=== PATIENT | male | born 1940 | race Caucasian/White ===

== ENCOUNTER 2017-08-30 06:26 | Inpatient (IN) | payer OTHER, MEDICARE ==
[2017-08-30] VITALS (9 sets, daily range): BP systolic 139–184; BP diastolic 63–84; PULSE 76–103; RESP 7–22; TEMP 97.3–98.2; O2SAT 90–98
[~2017-08-30] VITALS: Ht 177.8 cm; Wt 79.3 kg
[2017-08-30] MEDS ORDERED: AMLO10TA2 PO (06:43)
[2017-08-30 06:58] LABS: AUTOMATED NEUTROPHIL # 5.8 TH/MM3 (1.8-7.7); BASOPHIL % 0.5 % (0.0-2.0); EOSINOPHIL # 0.1 TH/MM3 (0-0.4); EOSINOPHIL % 1.1 % (0.0-4.0); HEMATOCRIT 39.6 % (39.0-51.0); HEMOGLOBIN 13.3 GM/DL (13.0-17.0); LYMPH % 12.7 % (9.0-44.0); LYMPHOCYTE # 0.9 TH/MM3 (1.0-4.8); MEAN CELL VOLUME 85.1 FL (80.0-100.0); MEAN CORPUSCULAR HEMOGLOBIN 28.6 PG (27.0-34.0); MEAN CORPUSCULAR HGB CONC 33.5 % (32.0-36.0); MEAN PLATELET VOLUME 8.3 FL (7.0-11.0); MONO % 7.4 % (0.0-8.0); MONOCYTE # 0.6 TH/MM3 (0-0.9); NEUT % 78.3 % (16.0-70.0); PLATELET COUNT 219 TH/MM3 (150-450); RED BLOOD COUNT 4.65 MIL/MM3 (4.50-5.90); RED CELL DISTRIBUTION WIDTH 13.6 % (11.6-17.2); WHITE BLOOD COUNT 7.5 TH/MM3 (4.0-11.0)
--- NOTE | 2017-08-30 07:09 | PD ---
HPI Chief Complaint: Respiratory Symptoms Time Seen by Provider: 06:54 Travel History International Travel<30 days: No Contact w/Intl Traveler<30days: No Traveled to known affect area: No History of Present Illness HPI The patient is a 77-year-old male who presents to the emergency department for shortness of breath. The patient notes cough and cold symptoms of one week's duration with congestion, chest congestion, productive cough producing white sputum. The patient has a remote history of tobacco use, quit smoking 20 years ago, denies any known history congestive heart failure, COPD, asthma, pulmonary embolism. Symptoms are moderate. He denies any chest pain, nausea, vomiting, diarrhea, or abdominal pain. He denies any recent hospitalizations, surgeries, or travel. The patient does have a history of hypertension for which he takes amlodipine. He denies any fever, chills, or sweats. The patient received Solu-Medrol 125 mg intravenously and nebulizers by EMS prior to arrival with significant improvement of his symptoms. The patient's primary physician is Dr. Michel. [facility] Past Medical History Narrative Medical Hypertension Hypertension: Yes Past Surgical History Narrative Surgical Right ear surgery Social History Alcohol Use: No Tobacco Use: No (quit 20 years ago) Substance Use: No Allergies-Medications (Allergen,Severity, Reaction): Coded Allergies: No Known Allergies (Unverified , 08/30/17) Reported Meds & Prescriptions Reported Meds & Active Scripts Active Reported Amlodipine (Amlodipine Besylate) 10 Mg Tab 10 Mg PO DAILY Review of Systems Except as stated in HPI: all other systems reviewed are Neg General / Constitutional: No: Fever HENT: Positive: Congestion Cardiovascular: No: Chest Pain or Discomfort Respiratory: Positive: Cough, Shortness of Breath, Wheezing Gastrointestinal: No: Nausea, Vomiting, Abdominal Pain Musculoskeletal: No: Edema Physical Exam Narrative GENERAL: Awake, alert, 77-year-old male who appears his stated age and is in mild respiratory distress. SKIN: Focused skin assessment warm/dry. HEAD: Atraumatic. Normocephalic. EYES: No injection or drainage. ENT: No nasal bleeding or discharge. Mucous membranes pink and moist. NECK: Trachea midline. No JVD. CARDIOVASCULAR: Regular rate and rhythm. No murmur appreciated. Heart rate in the 90s. RESPIRATORY: No accessory muscle use. Some scattered wheezes. GASTROINTESTINAL: Abdomen soft, non-tender, nondistended. No rebound tenderness. MUSCULOSKELETAL: No obvious deformities. No clubbing. No cyanosis. No edema. Calves are soft bilaterally. NEUROLOGICAL: Awake and alert. No obvious cranial nerve deficits. Motor grossly within normal limits. Normal speech. PSYCHIATRIC: Appropriate mood and affect; insight and judgment normal. Data Data Last Documented VS Vital Signs Date Time Temp Pulse Resp B/P (MAP) Pulse Ox O2 Delivery O2 Flow Rate FiO2 08/30/17 07:53 90 Room Air 2.00 08/30/17 07:01 90 17 08/30/17 06:33 97.6 Orders Orders Complete Blood Count With Diff (08/30/17 06:32) Comprehensive Metabolic Panel (08/30/17 06:32) Troponin I (08/30/17 06:32) B-Type Natriuretic Peptide (08/30/17 06:32) Chest, Single Ap (08/30/17 06:32) Electrocardiogram (08/30/17 ) Albuterol-Ipratropium Neb (Duoneb Neb) (08/30/17 07:30) Aspirin (Aspirin) (08/30/17 08:00) Ct Pulmonary Angiogram (08/30/17 ) Admit Order (Ed Use Only) (08/30/17 08:22) Labs Laboratory Tests Test 08/30/17 06:35 White Blood Count 7.5 TH/MM3 Red Blood Count 4.65 MIL/MM3 Hemoglobin 13.3 GM/DL Hematocrit 39.6 % Mean Corpuscular Volume 85.1 FL Mean Corpuscular Hemoglobin 28.6 PG Mean Corpuscular Hemoglobin Concent 33.5 % Red Cell Distribution Width 13.6 % Platelet Count 219 TH/MM3 Mean Platelet Volume 8.3 FL Neutrophils (%) (Auto) 78.3 % Lymphocytes (%) (Auto) 12.7 % Monocytes (%) (Auto) 7.4 % Eosinophils (%) (Auto) 1.1 % Basophils (%) (Auto) 0.5 % Neutrophils # (Auto) 5.8 TH/MM3 Lymphocytes # (Auto) 0.9 TH/MM3 Monocytes # (Auto) 0.6 TH/MM3 Eosinophils # (Auto) 0.1 TH/MM3 Basophils # (Auto) 0.0 TH/MM3 CBC Comment DIFF FINAL Differential Comment Blood Urea Nitrogen 10 MG/DL Creatinine 0.92 MG/DL Random Glucose 136 MG/DL Total Protein 6.9 GM/DL Albumin 3.4 GM/DL Calcium Level 7.8 MG/DL Alkaline Phosphatase 76 U/L Aspartate Amino Transf (AST/SGOT) 24 U/L Alanine Aminotransferase (ALT/SGPT) 15 U/L Total Bilirubin 0.3 MG/DL Sodium Level 138 MEQ/L Potassium Level 3.6 MEQ/L Chloride Level 106 MEQ/L Carbon Dioxide Level 24.0 MEQ/L Anion Gap 8 MEQ/L Estimat Glomerular Filtration Rate 80 ML/MIN Troponin I 0.09 NG/ML B-Type Natriuretic Peptide 120 PG/ML [facility] Medical Decision Making Medical Screen Exam Complete: Yes Emergency Medical Condition: Yes Medical Record Reviewed: Yes Interpretation(s) EKG reveals sinus rhythm with occasional PVC. Nonspecific ST changes. Laboratory Tests Test 08/30/17 06:35 White Blood Count 7.5 TH/MM3 Red Blood Count 4.65 MIL/MM3 Hemoglobin 13.3 GM/DL Hematocrit 39.6 % Mean Corpuscular Volume 85.1 FL Mean Corpuscular Hemoglobin 28.6 PG Mean Corpuscular Hemoglobin Concent 33.5 % Red Cell Distribution Width 13.6 % Platelet Count 219 TH/MM3 Mean Platelet Volume 8.3 FL Neutrophils (%) (Auto) 78.3 % Lymphocytes (%) (Auto) 12.7 % Monocytes (%) (Auto) 7.4 % Eosinophils (%) (Auto) 1.1 % Basophils (%) (Auto) 0.5 % Neutrophils # (Auto) 5.8 TH/MM3 Lymphocytes # (Auto) 0.9 TH/MM3 Monocytes # (Auto) 0.6 TH/MM3 Eosinophils # (Auto) 0.1 TH/MM3 Basophils # (Auto) 0.0 TH/MM3 CBC Comment DIFF FINAL Differential Comment Blood Urea Nitrogen 10 MG/DL Creatinine 0.92 MG/DL Random Glucose 136 MG/DL Total Protein 6.9 GM/DL Albumin 3.4 GM/DL Calcium Level 7.8 MG/DL Alkaline Phosphatase 76 U/L Aspartate Amino Transf (AST/SGOT) 24 U/L Alanine Aminotransferase (ALT/SGPT) 15 U/L Total Bilirubin 0.3 MG/DL Sodium Level 138 MEQ/L Potassium Level 3.6 MEQ/L Chloride Level 106 MEQ/L Carbon Dioxide Level 24.0 MEQ/L Anion Gap 8 MEQ/L Estimat Glomerular Filtration Rate 80 ML/MIN Troponin I 0.09 NG/ML B-Type Natriuretic Peptide 120 PG/ML Last Impressions Chest X-Ray 08/30/17 0632 Signed Impressions: Service Date/Time: Wednesday, August 30, 2017 06:40 - CONCLUSION: Normal examination. Yonatan Blanco MD CT Angiography 08/30/17 0000 Signed Impressions: Service Date/Time: Wednesday, August 30, 2017 09:12 - CONCLUSION: 1. No CT evidence for pulmonary artery embolism. 2. Moderate to severe diffuse centrilobular emphysema 3. Findings consistent with developing focal left anterior upper lobe pneumonia. Raudel Hi MD Differential Diagnosis Differential diagnosis includes bronchitis, pneumonia, URI, pleural effusion, pulmonary edema, ACS, pulmonary embolism, congestive heart failure. Narrative Course IV was established, labs are drawn and sent, and the patient was placed on cardiac telemetry monitoring and continuous pulse oximetry monitoring. EKG was ordered and interpreted. Chest x-rays obtained. The patient was monitored in the emergency department, his symptoms did improve with Solu-Medrol and nebulizers. Chest x-rays unremarkable. Patient did improve after nebulizers, O2 saturation on room air was evaluated, dropped into the mid 80s. Patient was placed on nasal cannula 2 L, his oxygen saturation varied between 88% and 91% on 2 L. The patient is not on home oxygen, does have mild hypoxia with his bronchitis, will require admission, valerianoo barbie, [place] no longer oxygen dependent. The patient's primary physician is Dr. Michel. Therefore, [facility] were paged for admission. Troponin was positive at 0.09, therefore, the patient was administered aspirin. This may be secondary to hypoxia versus underlying cardiac ischemia. BNP was only 120. The patient maintained hypoxia on 2 L between 8891%, require admission for steroids, duo nebs, oxygen, and serial troponins. I discussed the patient with Dr. Garcia who agrees with admission. It was discussed the patient is hypoxic but no previous history of COPD and elevated troponin, therefore, CT pulmonary angiogram will be ordered and will be obtained prior to the patient going to the floor. CT pulmonary angiogram negative for PE, does revealed developing left upper lobe pneumonia. The patient was administered Rocephin and Zithromax. Physician Communication Physician Communication [facility] were paged for admission. Diagnosis Primary Impression: Dyspnea Qualified Codes: R06.00 - Dyspnea, unspecified Additional Impressions: Hypoxia Elevated troponin Admitting Information Admitting Physician Requests: Admit Condition: Stable Chris Obregon MD Aug 30, 2017 07:09
--- NOTE | 2017-08-30 07:14 | RADRPT ---
EXAM DATE/TIME: 08/30/2017 06:40 [facility] COMPARISON: No previous studies available for comparison. INDICATIONS : Shortness of breath MEDICAL HISTORY : Hypertension. SURGICAL HISTORY : None. ENCOUNTER: Initial ACUITY: 1 day PAIN SCORE: 8/10 LOCATION: Bilateral chest FINDINGS: A single view of the chest demonstrates the lungs to be symmetrically aerated without evidence of mas s, infiltrate or effusion. The cardiomediastinal contours are unremarkable. Osseous structures are intact. CONCLUSION: Normal examination. Yonatan Blanco MD on August 30, 2017 at 7:13 Board Certified Radiologist. This report was verified electronically.
[2017-08-30] MEDS ORDERED: RESP: ALBUTEROL 2.5 MG/IPRATROPIUM 0.5 MG NEB (SCH) NEB ONE (07:30)
[2017-08-30 07:38] LABS: ALBUMIN 3.4 GM/DL (3.4-5.0); ALT (GPT) 15 U/L (12-78); AST (GOT) 24 U/L (15-37); BLOOD UREA NITROGEN 10 MG/DL (7-18); CALCIUM 7.8 MG/DL (8.5-10.1); CHLORIDE 106 MEQ/L (98-107); CREATININE 0.92 MG/DL (0.60-1.30); GLOMERULAR FILTRATION RATE 80 ML/MIN (>89); GLUCOSE,RANDOM 136 MG/DL (74-106); SODIUM (NA) 138 MEQ/L (136-145)
[2017-08-30 07:42] LABS: ALKALINE PHOSPHATASE 76 U/L (45-117); TOTAL BILIRUBIN ADULT 0.3 MG/DL (0.2-1.0); TOTAL PROTEIN 6.9 GM/DL (6.4-8.2); TROPONIN I 0.09 NG/ML (0.02-0.05)
[2017-08-30] MEDS ORDERED: ASPIRIN 325 MG TAB PO ONE (08:00)
[2017-08-30] MEDS ORDERED: MAGNESIUM HYDROXIDE SUSP 30 ML CUP PO PRN (08:30)
[2017-08-30] MEDS ORDERED: ONDANSETRON HCL 4 MG/2 ML VIAL IVP PRN (08:30)
[2017-08-30] MEDS ORDERED: NALOXONE HCL 0.4 MG/ML AMP IV PUSH PRN (08:30)
[2017-08-30] MEDS ORDERED: BISACODYL 10 MG SUPP RECTAL PRN (08:30)
[2017-08-30] MEDS ORDERED: RESP: IPRATROPIUM 0.5 MG/2.5 ML NEB INH PRN (08:30)
[2017-08-30] MEDS ORDERED: methylPREDNISolone SOD SUCC 125 MG/2 ML VIAL IV PUSH ONE (08:30)
[2017-08-30] MEDS ORDERED: SENNOSIDES 8.6 MG TAB PO PRN (08:30)
[2017-08-30] MEDS ORDERED: SODIUM CHLORIDE 0.9% FLUSH 10 ML FLUSH IV FLUSH PRN (08:30)
[2017-08-30] MEDS ORDERED: LACTULOSE SYRUP 20 GM/30 ML CUP PO PRN (08:30)
[2017-08-30] MEDS: SODIUM CHLORIDE 0.9% FLUSH 10 ML FLUSH IV FLUSH SCH ×2 (09:00→20:30)
[2017-08-30] MEDS ORDERED: IOHEXOL 350 MG/ML 10 ML VIAL (for RAD DIAG) IVCONTRAST ONE (09:16)
[2017-08-30] MEDS: HEPARIN SODIUM - SQ 10,000 UNITS/ML VIAL SQ SCH ×2 (09:29→20:30)
[2017-08-30] MEDS: AZITHROMYCIN 250 MG TAB PO SCH (09:30)
--- NOTE | 2017-08-30 09:34 | RADRPT ---
EXAM DATE/TIME: 08/30/2017 09:12 [facility] COMPARISON: No previous studies available for comparison. INDICATIONS : Non-productive cough and low oxygen saturation, shortness of breath. IV CONTRAST: 74 cc Omnipaque 350 (iohexol) IV RADIATION DOSE: 9.46 CTDIvol (mGy) MEDICAL HISTORY : Hypertension. SURGICAL HISTORY : None. ENCOUNTER: Initial ACUITY: 2 days PAIN SCALE: 0/10 LOCATION: Bilateral chest TECHNIQUE: Volumetric scanning of the chest was performed using a pulmonary embolism protocol MIP images were re constructed. Using automated exposure control and adjustment of the mA and/or kV according to patien t size, radiation dose was kept as low as reasonably achievable to obtain optimal diagnostic quality images. DICOM format image data is available electronically for review and comparison. Follow-up recommendations for detected pulmonary nodules are based at a minimum on nodule size and pa tient risk factors according to Fleischner Society Guidelines. FINDINGS: PULMONARY ARTERIES: No filling defects are seen in the pulmonary arteries through the segmental level. LUNGS: Moderate to severe diffuse centrilobular emphysema. Patchy focal groundglass opacities in and near ca harlan but appearance in the anterior left upper lobe medially. PLEURAE: There is no pleural thickening or pleural effusion. MEDIASTINUM: Multiple small subcentimeter mediastinal nodes which do not meet CT size criteria. Slightly prominent bilateral hilar nodes measuring 1.5 cm on the right and 1 cm on the left. Dense coronary artery calc ifications. Heart is otherwise unremarkable without significant pericardial effusion. MUSCULOSKELETAL: Within normal limits for patient age. MISCELLANEOUS: The visualized upper abdominal organs demonstrate no acute abnormality. Splenic calcifications consis tent with prior granulomas disease. CONCLUSION: 1. No CT evidence for pulmonary artery embolism. 2. Moderate to severe diffuse centrilobular emphysema 3. Findings consistent with developing focal left anterior upper lobe pneumonia. Raudel Hi MD on August 30, 2017 at 9:25 Board Certified Radiologist. This report was verified electronically.
[2017-08-30] MEDS: RESP: ALBUTEROL 2.5 MG/IPRATROPIUM 0.5 MG NEB (SCH) INH ×3 (09:36→21:44)
[2017-08-30] MEDS ORDERED: AZITHROMYCIN INJ 500 MG in SODIUM CHLOR 0.9% 250 ML INJ 250 ML IV ONE (10:00)
[2017-08-30] MEDS ORDERED: cefTRIAXone INJ 1,000 MG in SODIUM CHLORIDE 0.9% INJ 100 ML IV ONE (10:00)
[2017-08-30] MEDS ORDERED: ENALAPRILAT 1.25 MG/ML VIAL IV PUSH PRN (12:15)
--- NOTE | 2017-08-30 12:18 | HHI.HP ---
HPI [facility] Primary Care Physician Unknown Admission Diagnosis dyspnea, hypoxia, elevated troponin Diagnoses: Travel History International Travel<30 Days: No Contact w/Intl Traveler <30 Da: No Traveled to Known Affected Are: No History of Present Illness 77-year-old male with a 42-dmpj-beal smoking history, quitting in the 1995, hypertension, who presents with 3 day history of worsening cough productive of clear sputum, with a 2 day history of worsening shortness of breath. Patient woke up around 2 this morning feeling unable to breathe, and was brought to the ER. Patient reports feeling somewhat better after DuoNeb's, however still short of breath. He reports his has a similar respiratory illness which is getting better. He denies any fevers, chills, chest pain, nausea, vomiting, diarrhea, constipation. Review of Systems Performed and negative except for HPI and past medical history. Past Family Social History Past Medical History Hypertension 12-[id number]-fmut history of smoking. Quitting in the 1995. Patient denies any known history of COPD or emphysema Past Surgical History Patient had prostate radiation, with most recent PSA in May. Reported Medications Amlodipine 10 mg by mouth daily. Allergies: Coded Allergies: No Known Allergies (Unverified , 08/30/17) Family History Father had heart valve replaced in his 60s, with carotid endarterectomies and CABG following. Mother from old age Social History Patient reports smoking 2 packs per day for 40 years, quitting in 1995. Nondrinker. Denies illicit drugs. Physical Exam Vital Signs Vital Signs Date Time Temp Pulse Resp B/P (MAP) Pulse Ox O2 Delivery O2 Flow Rate FiO2 08/30/17 09:38 90 17 184/84 (117) 94 Nasal Cannula 2.00 08/30/17 07:53 90 Room Air 2.00 08/30/17 07:52 91 Nasal Cannula 3.00 08/30/17 07:01 90 17 146/63 (90) 97 Nasal Cannula 2.00 08/30/17 06:35 98 Aerosol Mask 08/30/17 06:33 97.6 89 19 159/71 (100) 98 Physical Exam GENERAL: This is a well-nourished, well-developed patient, who appears short of breath. Alert and oriented 3. SKIN: No rashes, ecchymoses or lesions. Cool and dry. HEAD: Atraumatic. Normocephalic. No temporal or scalp tenderness. EYES: Pupils equal round and reactive. Extraocular motions intact. No scleral icterus. No injection or drainage. ENT: Nose without bleeding, purulent drainage or septal hematoma. Throat without erythema, tonsillar hypertrophy or exudate. Uvula midline. Airway patent. NECK: Trachea midline. No JVD or lymphadenopathy. Supple, nontender, no meningeal signs. CARDIOVASCULAR: Regular rate and rhythm without murmurs, gallops, or rubs. RESPIRATORY: Wheezing bilaterally. No rales or rhonchi. GASTROINTESTINAL: Abdomen soft, non-tender, nondistended. No hepato-splenomegaly , or palpable masses. No guarding. MUSCULOSKELETAL: Extremities without clubbing, cyanosis, or edema. No joint tenderness, effusion, or edema noted. No calf tenderness. Negative Homans sign bilaterally. NEUROLOGICAL: Awake and alert. Cranial nerves II through XII intact. Motor and sensory grossly within normal limits. Five out of 5 muscle strength in all muscle groups. Normal speech. Laboratory Laboratory Tests Test 08/30/17 06:35 08/30/17 08:43 08/30/17 09:49 White Blood Count 7.5 Red Blood Count 4.65 Hemoglobin 13.3 Hematocrit 39.6 Mean Corpuscular Volume 85.1 Mean Corpuscular Hemoglobin 28.6 Mean Corpuscular Hemoglobin Concent 33.5 Red Cell Distribution Width 13.6 Platelet Count 219 Mean Platelet Volume 8.3 Neutrophils (%) (Auto) 78.3 Lymphocytes (%) (Auto) 12.7 Monocytes (%) (Auto) 7.4 Eosinophils (%) (Auto) 1.1 Basophils (%) (Auto) 0.5 Neutrophils # (Auto) 5.8 Lymphocytes # (Auto) 0.9 Monocytes # (Auto) 0.6 Eosinophils # (Auto) 0.1 Basophils # (Auto) 0.0 CBC Comment DIFF FINAL Differential Comment Blood Urea Nitrogen 10 Creatinine 0.92 Random Glucose 136 Total Protein 6.9 Albumin 3.4 Calcium Level 7.8 Alkaline Phosphatase 76 Aspartate Amino Transf (AST/SGOT) 24 Alanine Aminotransferase (ALT/SGPT) 15 Total Bilirubin 0.3 Sodium Level 138 Potassium Level 3.6 Chloride Level 106 Carbon Dioxide Level 24.0 Anion Gap 8 Estimat Glomerular Filtration Rate 80 Troponin I 0.09 0.13 B-Type Natriuretic Peptide 120 Blood Gas Puncture Site LT RADIAL Blood Gas Patient Temperature 98.6 Blood Gas HCO3 20 Blood Gas Base Excess -3.1 Blood Gas Oxygen Saturation 96 Arterial Blood pH 7.51 Arterial Blood Partial Pressure CO2 25 Arterial Blood Partial Pressure O2 75 Arterial Blood Oxygen Content 17.9 Arterial Blood Carboxyhemoglobin 1.1 Arterial Blood Methemoglobin 0.6 Blood Gas Hemoglobin 13.2 Oxygen Delivery Device NASAL CANNULA Blood Gas Liter Flow 3 Result Diagram: 08/30/1735 08/30/1735 Caprini VTE Risk Assessment Caprini VTE Risk Assessment: Mod/High Risk (score >= 2) Caprini Risk Assessment Model Point Value = 1 Point Value = 2 Point Value = 3 Point Value = 5 Age 41-60 Minor surgery BMI > 25 kg/m2 Swollen legs Varicose veins or History of unexplained or recurrent spontaneous Oral contraceptives or hormone replacement Sepsis (< 1 month) Serious lung disease, including pneumonia (< 1 month) Abnormal pulmonary function Acute myocardial infarction Congestive heart failure (< 1 month) History of inflammatory bowel disease Medical patient at bed rest Age 61-74 Arthroscopic surgery Major open surgery (> 45 min) Laparoscopic surgery (> 45 min) Malignancy Confined to bed (> 72 hours) Immobilizing plaster cast Central venous access Age >= 75 History of VTE Family history of VTE Factor V Leiden Prothrombin [id number] Lupus anticoagulant Anticardiolipin antibodies Elevated serum homocysteine Heparin-induced thrombocytopenia Other congenital or acquired thrombophilia Stroke (< 1 month) Elective arthroplasty Hip, pelvis, or leg fracture Acute spinal cord injury (< 1 month) Prophylaxis Regimen Total Risk Factor Score Risk Level Prophylaxis Regimen 0-1 Low Early ambulation 2 Moderate Order ONE of the following: *Sequential Compression Device (SCD) *Heparin 5000 units SQ BID 3-4 Higher Order ONE of the following medications: *Heparin 5000 units SQ TID *Enoxaparin/Lovenox 40 mg SQ daily (WT < 150 kg, CrCl > 30 mL/min) *Enoxaparin/Lovenox 30 mg SQ daily (WT < 150 kg, CrCl > 10-29 mL/min) *Enoxaparin/Lovenox 30 mg SQ BID (WT < 150 kg, CrCl > 30 mL/min) AND/OR *Sequential Compression Device (SCD) 5 or more Highest Order ONE of the following medications: *Heparin 5000 units SQ TID (Preferred with Epidurals) *Enoxaparin/Lovenox 40 mg SQ daily (WT < 150 kg, CrCl > 30 mL/min) *Enoxaparin/Lovenox 30 mg SQ daily (WT < 150 kg, CrCl > 10-29 mL/min) *Enoxaparin/Lovenox 30 mg SQ BID (WT < 150 kg, CrCl > 30 mL/min) AND *Sequential Compression Device (SCD) Assessment and Plan Assessment and Plan //COPD exacerbation //Hypoxemic respiratory failure. //Community-acquired pneumonia. = Patient satting 91% on 3 L. -ABG ordered, with respiratory alkalosis. Oxygenation appears improved after DuoNeb's. = CT pulmonary [place] negative for PE, however does show moderate to severe diffuse centrilobular emphysema, as well as left upper lobe pneumonia. = Continue broad-spectrum antibiotics, duo nebs, steroids. Consult pulmonology. //Hypertension. = Blood pressure elevated systolics in the 180s. Continue home amlodipine. Add Vasotec as needed. Continue to monitor //Troponin elevation up to 0.13. -Together with some ST depression on EKG Patient denies any chest pain. -This certainly could be demand ischemia secondary to COPD exacerbation, however will consult cardiology due to 34-mmbz-zalh smoking history, as well as upward trend in troponin.. //DVT prophylaxis. Heparin. Discussed Condition With Patient, nurse, ED physician. Physician Certification 2 Midnight Certification Type: Admission for Inpatient Services Order for Inpatient Services The services are ordered in accordance with Medicare regulations or non- Medicare payer requirements, as applicable. In the case of services not specified as inpatient-only, they are appropriately provided as inpatient services in accordance with the 2-midnight benchmark. Estimated LOS (days): 2 days is the estimated time the patient will need to remain in the hospital, assuming treatment plan goals are met and no additional complications. Post-Hospital Plan: Home Dwayne Garcia MD Aug 30, 2017 12:18
[2017-08-30] MEDS ORDERED: LOSA50TA PO (13:38)
[2017-08-30] MEDS: methylPREDNISolone SOD SUCC 40 MG/1 ML VIAL IV PUSH SCH ×2 (14:39→20:30)
--- NOTE | 2017-08-30 19:32 | MB ---
cc: SANDY TRIVEDI DATE OF CONSULTATION: 08/30/2017. HISTORY OF PRESENT ILLNESS: 77-year-old white male with history of hypertension and smoking who developed progressive shortness of breath which was partially improved with an inhaler. He has not had any chest pain or peripheral edema. PAST MEDICAL HISTORY: 1. Positive for hypertension. 2. No history of heart disease, lung disease, diabetes mellitus or dyslipidemia. MEDICATIONS: Amlodipine. ALLERGIES: NONE. SOCIAL HISTORY: The patient quit smoking in 1995. He does not drink alcohol. FAMILY HISTORY: His family history is positive for heart disease in his father. REVIEW OF SYSTEMS: The review of systems is otherwise negative. PHYSICAL EXAMINATION: VITAL SIGNS: Blood pressure 172/76, pulse 100 and regular. HEAD, EYES, EARS, NOSE, THROAT: Negative. NECK: 2+ carotid upstrokes, no bruits. LUNGS: Bilateral wheezes and rhonchi. HEART: Regular with no murmurs, rubs or gallops. ABDOMEN: Abdomen soft. No bruits. EXTREMITIES: Without edema. 2+ distal pulses. NEUROLOGIC: Grossly nonfocal. EKG was reviewed and showed normal sinus rhythm with normal axis and intervals. LABORATORY DATA: Hemoglobin of 13.3, potassium 3.6, creatinine 0.90. Troponin 0.09, 0.13 and 0.09. BNP 120. AST and ALT normal. DIAGNOSIS: 1. Acute COPD exacerbation. 2. Hypoxemia with respiratory failure. 3. Pneumonia. 4. Mild troponin elevation. 5. Hypertension. DISPOSITION: 1. Mr. Youssef will be monitored on telemetry. 2. Will continue therapy for his COPD exacerbation and pneumonia. 3. Will obtain echocardiogram to evaluate his left ventricular function. His troponin is not significantly trending in any direction and he has not had any angina. I will follow him for cardiology during his hospitalization. MD JAMES Miller/CARIE /6:35 PM /7:20 PM
--- NOTE | 2017-08-30 21:50 | MB ---
cc: ROSS HAWKINS DATE OF CONSULTATION 08/30/17 REASON FOR CONSULTATION COPD exacerbation, pneumonia. HISTORY OF PRESENT ILLNESS Mr. Youssef is a 77-year-old male with remote smoking history, has about a 20 pack-year smoking history, stopped in 1995. He does have a history of hypertension. He denies diabetes or previous heart disease. He is admitted with increasing shortness of breath, cough with small amount of whitish sputum. No fever or chills, no hemoptysis. No TB or industrial exposure. PAST MEDICAL HISTORY Hypertension as mentioned above. No official previous diagnosis of underlying lung disease. MEDICATIONS Amlodipine. ALLERGIES None known to medication. SOCIAL HISTORY Smoking as above, has not smoked since 1995 FAMILY HISTORY Positive for heart disease otherwise unremarkable. REVIEW OF SYSTEMS A 12-point review of systems as per HPI and past history otherwise negative. PHYSICAL EXAMINATION GENERAL: On exam, the patient is alert. VITAL SIGNS: Temperature 98, pulse 90, respirations 18, blood pressure 160/60. HEENT: Exam unremarkable. Eyes without icterus. NECK: Without adenopathy or thyroid enlargement. Central trachea. CHEST: Few scattered rhonchi at bases. CARDIAC: PMI distant. S1, S2 audible. No murmur, no rub. ABDOMEN: Lax, bowel sounds audible. EXTREMITIES: No clubbing, cyanosis or edema. SKIN: Normal. No lymphadenopathy. LABORATORY DATA White count 7.5, hemoglobin 13, hematocrit 39, platelets are 219,000. Arterial blood gas - pH 7.51, pCO2 25, pO2 of 75 on three liters oxygen nasal cannula. Sodium 138, potassium 3.8, BUN 10, creatinine 0.9. IMAGING STUDIES Chest x-ray is clear. CT angiogram with question small infiltrate left upper lung lobe. IMPRESSION 1. COPD and exacerbation 2. Pneumonia 3. Hypertension. PLAN The patient does not have a previous diagnosis of COPD, however, his presentation and history indicates at least an element of underlying COPD. His CT scan of the chest is with severe diffuse emphysematous change. He will be maintained on antibiotic therapy, bronchodilator therapy, underlying pneumonia may be present as well as mentioned above. We will follow his course along with you and, depending on progress, proceed further. I do thank you for asking me to partake in Mr. Youssef's care. Sincerely MD WOODROW Garcia/ /7:48 PM /9:35 PM
--- NOTE | 2017-08-30 22:27 | EKG ---
Date Performed: 08/30/2017 Time Performed: 11:13:07 PTAGE: 77 years EKG: Sinus rhythm POSSIBLE LEFT ATRIAL ENLARGEMENT BORDERLINE ECG PREVIOUS TRACING : 08/30/2017 06.41 Since the prior tracing, there has been no significant malik DOCTOR: Adolfo Mojica Interpretating Date/Time 08/30/2017 22:26:41
--- NOTE | 2017-08-30 23:48 | EKG ---
Date Performed: 08/30/2017 Time Performed: 06:41:50 PTAGE: 77 years EKG: Sinus rhythm WITH OCCASIONAL VENTRICULAR PREMATURE COMPLEXES MINIMAL ST DEPRESSION BORDERLINE ECG NO PREVIOUS TRACING DOCTOR: Adolfo Mojica Interpretating Date/Time 08/30/2017 23:47:40
[2017-08-31] VITALS (7 sets, daily range): BP systolic 134–187; BP diastolic 59–103; PULSE 87–102; RESP 18–22; TEMP 97.6–98.2; O2SAT 92–95
[2017-08-31] MEDS: RESP: ALBUTEROL 2.5 MG/IPRATROPIUM 0.5 MG NEB (SCH) INH ×4 (03:45→20:53)
[2017-08-31] MEDS: methylPREDNISolone SOD SUCC 40 MG/1 ML VIAL IV PUSH SCH ×2 (05:07→21:19)
[2017-08-31 08:10] LABS: AUTOMATED NEUTROPHIL # 11.2 TH/MM3 (1.8-7.7); BASOPHIL % 0.1 % (0.0-2.0); LYMPH % 2.5 % (9.0-44.0); LYMPHOCYTE # 0.3 TH/MM3 (1.0-4.8); MEAN CELL VOLUME 84.4 FL (80.0-100.0); MEAN CORPUSCULAR HEMOGLOBIN 28.3 PG (27.0-34.0); MEAN CORPUSCULAR HGB CONC 33.5 % (32.0-36.0); MEAN PLATELET VOLUME 8.7 FL (7.0-11.0); MONO % 3.8 % (0.0-8.0); MONOCYTE # 0.5 TH/MM3 (0-0.9); NEUT % 93.6 % (16.0-70.0); PLATELET COUNT 245 TH/MM3 (150-450); RED BLOOD COUNT 4.62 MIL/MM3 (4.50-5.90); RED CELL DISTRIBUTION WIDTH 13.4 % (11.6-17.2)
[2017-08-31 08:35] LABS: ALBUMIN 3.2 GM/DL (3.4-5.0); ALT (GPT) 16 U/L (12-78); AST (GOT) 25 U/L (15-37); BICARBONATE 24.7 MEQ/L (21.0-32.0); BLOOD UREA NITROGEN 14 MG/DL (7-18); CALCIUM 8.5 MG/DL (8.5-10.1); CHLORIDE 106 MEQ/L (98-107); CREATININE 0.75 MG/DL (0.60-1.30); GLOMERULAR FILTRATION RATE 101 ML/MIN (>89); GLUCOSE,RANDOM 158 MG/DL (74-106); SODIUM (NA) 140 MEQ/L (136-145)
[2017-08-31 08:37] LABS: ALKALINE PHOSPHATASE 71 U/L (45-117); TOTAL BILIRUBIN ADULT 0.3 MG/DL (0.2-1.0); TOTAL PROTEIN 6.9 GM/DL (6.4-8.2)
[2017-08-31] MEDS: AZITHROMYCIN 250 MG TAB PO SCH (09:32)
[2017-08-31] MEDS: SODIUM CHLORIDE 0.9% FLUSH 10 ML FLUSH IV FLUSH SCH ×2 (09:36→21:00)
[2017-08-31] MEDS: HEPARIN SODIUM - SQ 10,000 UNITS/ML VIAL SQ SCH ×2 (09:36→21:20)
[2017-08-31] MEDS ORDERED: ACETAMINOPHEN 325 MG TAB PO PRN (12:45)
[2017-08-31] MEDS ORDERED: ONDANSETRON HCL 4 MG/2 ML VIAL IV PUSH PRN (12:45)
--- NOTE | 2017-08-31 12:50 | HHI.PR ---
Subjective Remarks Follow-up COPD exacerbation/respiratory failure/community-acquired pneumonia 08/31/17-patient seen and examined, patient reported improvement or shortness of breath, denies any chest pain, currently afebrile. Nonproductive cough. Objective Vitals Vital Signs Date Time Temp Pulse Resp B/P (MAP) Pulse Ox O2 Delivery O2 Flow Rate FiO2 08/31/17 09:11 Nasal Cannula 3.00 08/31/17 08:00 97.8 89 18 156/71 (99) 94 08/31/17 04:00 97.6 91 18 140/73 (95) 94 08/31/17 00:37 98.2 90 20 136/59 (84) 95 08/31/17 00:00 Nasal Cannula 2.00 08/30/17 21:45 98.2 93 19 147/74 (98) 90 08/30/17 21:45 94 Nasal Cannula 2.00 08/30/17 20:00 Nasal Cannula 2.00 08/30/17 17:17 Nasal Cannula 2.00 08/30/17 16:10 97.3 103 22 172/76 (108) 91 08/30/17 14:50 76 17 139/80 (99) 96 Nasal Cannula 2.00 08/30/17 13:46 90 18 94 Nasal Cannula 2.00 I/O 08/30/17 08/30/17 08/30/17 08/31/17 08/31/17 08/31/17 07:00 15:00 23:00 07:00 15:00 23:00 Intake Total 100 ml Output Total 200 ml Balance 100 ml -200 ml Intake IV Total 100 ml Output Urine Total 200 ml # Voids 1 # Bowel Movements 1 Result Diagram: 08/31/17 0553 08/31/17 0553 Imaging Last Impressions Chest X-Ray 08/30/17 0632 Signed Impressions: Service Date/Time: Wednesday, August 30, 2017 06:40 - CONCLUSION: Normal examination. Yonatan Blanco MD CT Angiography 08/30/17 0000 Signed Impressions: Service Date/Time: Wednesday, August 30, 2017 09:12 - CONCLUSION: 1. No CT evidence for pulmonary artery embolism. 2. Moderate to severe diffuse centrilobular emphysema 3. Findings consistent with developing focal left anterior upper lobe pneumonia. Raudel Hi MD Objective Remarks GENERAL: NAD SKIN: Warm and dry. HEAD: Normocephalic. EYES: No scleral icterus. No injection or drainage. NECK: Supple, trachea midline. No JVD or lymphadenopathy. CARDIOVASCULAR: Regular rate and rhythm without murmurs, gallops, or rubs. RESPIRATORY: Breath sounds decrease bilaterally. No accessory muscle use. GASTROINTESTINAL: Abdomen soft, non-tender, nondistended. MUSCULOSKELETAL: No cyanosis, or edema. BACK: Nontender without obvious deformity. No CVA tenderness. A/P Problem List: (1) Community acquired bacterial pneumonia ICD Code: J15.9 - Unspecified bacterial pneumonia (2) COPD with exacerbation ICD Code: J44.1 - Chronic obstructive pulmonary disease with (acute) exacerbation (3) Hypoxia ICD Code: R09.02 - Hypoxemia Status: Acute (4) Elevated troponin ICD Code: R74.8 - Abnormal levels of other serum enzymes Status: Acute Assessment and Plan 77-year-old man with COPD exacerbation Hypoxemic respiratory failure-Resolved Community-acquired pneumonia. CTA pulmonary negative for PE, however does show moderate to severe diffuse centrilobular emphysema, as well as left upper lobe pneumonia. Continue broad-spectrum antibiotics, duo nebs, steroids however change to Q12H. Add Spiriva, Symbicort and Mucinex Appreciate input from pulmonary medicine Maintain oxygen saturation above 92% Hypertension. Labile BP Continue home amlodipine and resume Cozaar. Troponin elevation up to 0.13. 2/2 demand ischemia secondary to COPD exacerbation Appreciate input from cardiology DVT prophylaxis. Heparin. Lalo Johnson MD Aug 31, 2017 12:50
[2017-08-31] MEDS: cefTRIAXone INJ 1,000 MG in SODIUM CHLORIDE 0.9% INJ 100 ML IV SCH (14:06)
--- NOTE | 2017-08-31 14:40 | EKG ---
Date Performed: 08/30/2017 Time Performed: 14:36:44 PTAGE: 77 years EKG: Sinus rhythm NORMAL ECG Since PREVIOUS TRACING , no significant change noted PREVIOUS TRACIN08/30/2017 11.13 DOCTOR: Cisco Whitney Interpretating Date/Time 08/31/2017 14:38:46
--- NOTE | 2017-08-31 19:27 | PD.CARD.PN ---
Subjective Subjective Remarks No CP, mild SOB Objective Medications Current Medications Medications (Trade) Dose Ordered Sig/Bobby Route Start Time Stop Time Status Last Admin (NS Flush) 2 ml UNSCH PRN IV FLUSH 08/30/17 08:30 08/31/17 05:08 (NS Flush) 2 ml BID IV FLUSH 08/30/17 09:00 08/31/17 09:36 (Zofran Inj) 4 mg Q6H PRN IVP 08/30/17 08:30 (Heparin Inj) 5,000 units Q12H SQ 08/30/17 09:00 08/31/17 09:36 (Narcan Inj) 0.4 mg UNSCH PRN IV PUSH 08/30/17 08:30 (Milk Of Magnesia Liq) 30 ml Q12H PRN PO 08/30/17 08:30 (Senokot) 17.2 mg Q12H PRN PO 08/30/17 08:30 (Dulcolax Supp) 10 mg DAILY PRN RECTAL 08/30/17 08:30 (Lactulose Liq) 30 ml DAILY PRN PO 08/30/17 08:30 (Duoneb Neb) 1 ampule Q6HR NEB INH 08/30/17 10:00 08/31/17 15:13 (Atrovent Neb) 0.5 mg Q6HR NEB PRN INH 08/30/17 08:30 (Zithromax) 250 mg Taper DAILY PO 08/30/17 09:00 09/04/17 08:59 08/31/17 09:32 Ceftriaxone Sodium 1000 mg/ Sodium Chloride 100 ml @ 200 mls/hr Q24H IV 08/31/17 12:00 08/31/17 14:06 (Norvasc) 10 mg DAILY PO 08/30/17 13:00 08/31/17 09:32 (Vasotec Inj) 1.25 mg Q6H PRN IV PUSH 08/30/17 12:15 08/31/17 16:20 (SoluMEDROL INJ) 40 mg Q12HR IV PUSH 08/31/17 21:00 (Symbicort 160-4.5 Mcg Inh) 2 puff Q12HR INH 08/31/17 21:00 (Spiriva Inh) 18 mcg DAILY INH 09/01/17 09:00 (Tylenol) 650 mg Q4H PRN PO 08/31/17 12:45 (Restoril) 15 mg HS PRN PO 08/31/17 21:00 (Cozaar) 50 mg DAILY PO 09/01/17 09:00 Vital Signs / I&O Vital Signs Date Time Temp Pulse Resp B/P (MAP) Pulse Ox O2 Delivery O2 Flow Rate FiO2 08/31/17 16:00 98.1 100 20 155/103 (120) 92 08/31/17 15:13 93 Nasal Cannula 3.00 08/31/17 12:00 97.7 102 20 187/86 (119) 93 08/31/17 09:11 Nasal Cannula 3.00 08/31/17 08:00 97.8 89 18 156/71 (99) 94 08/31/17 08:00 96 Nasal Cannula 2.00 08/31/17 04:00 97.6 91 18 140/73 (95) 94 08/31/17 00:37 98.2 90 20 136/59 (84) 95 08/31/17 00:00 Nasal Cannula 2.00 08/30/17 21:45 98.2 93 19 147/74 (98) 90 08/30/17 21:45 94 Nasal Cannula 2.00 08/30/17 20:00 Nasal Cannula 2.00 I/O 08/30/17 08/30/17 08/30/17 08/31/17 08/31/17 08/31/17 07:00 15:00 23:00 07:00 15:00 23:00 Intake Total 100 ml 580 ml Output Total 200 ml Balance 100 ml -200 ml 580 ml Intake Oral 580 ml IV Total 100 ml Output Urine Total 200 ml # Voids 1 3 # Bowel Movements 1 1 Physical Exam GENERAL: In NAD SKIN: Warm and dry. HEAD: Normocephalic. EYES: No scleral icterus. No injection or drainage. NECK: Supple, trachea midline. No JVD or lymphadenopathy. CARDIOVASCULAR: Regular rate and rhythm without murmurs, gallops, or rubs. RESPIRATORY: Breath sounds equal bilaterally. No accessory muscle use. GASTROINTESTINAL: Abdomen soft, non-tender, nondistended. MUSCULOSKELETAL: No cyanosis, mild edema. Laboratory Laboratory Tests Test 08/31/17 05:53 White Blood Count 12.0 TH/MM3 Red Blood Count 4.62 MIL/MM3 Hemoglobin 13.0 GM/DL Hematocrit 39.0 % Mean Corpuscular Volume 84.4 FL Mean Corpuscular Hemoglobin 28.3 PG Mean Corpuscular Hemoglobin Concent 33.5 % Red Cell Distribution Width 13.4 % Platelet Count 245 TH/MM3 Mean Platelet Volume 8.7 FL Neutrophils (%) (Auto) 93.6 % Lymphocytes (%) (Auto) 2.5 % Monocytes (%) (Auto) 3.8 % Eosinophils (%) (Auto) 0.0 % Basophils (%) (Auto) 0.1 % Neutrophils # (Auto) 11.2 TH/MM3 Lymphocytes # (Auto) 0.3 TH/MM3 Monocytes # (Auto) 0.5 TH/MM3 Eosinophils # (Auto) 0.0 TH/MM3 Basophils # (Auto) 0.0 TH/MM3 CBC Comment DIFF FINAL Differential Comment Blood Urea Nitrogen 14 MG/DL Creatinine 0.75 MG/DL Random Glucose 158 MG/DL Total Protein 6.9 GM/DL Albumin 3.2 GM/DL Calcium Level 8.5 MG/DL Alkaline Phosphatase 71 U/L Aspartate Amino Transf (AST/SGOT) 25 U/L Alanine Aminotransferase (ALT/SGPT) 16 U/L Total Bilirubin 0.3 MG/DL Sodium Level 140 MEQ/L Potassium Level 3.8 MEQ/L Chloride Level 106 MEQ/L Carbon Dioxide Level 24.7 MEQ/L Anion Gap 9 MEQ/L Estimat Glomerular Filtration Rate 101 ML/MIN Assessment and Plan Problem List: (1) COPD with exacerbation ICD Codes: J44.1 - Chronic obstructive pulmonary disease with (acute) exacerbation (2) Respiratory failure ICD Codes: J96.90 - Respiratory failure, unspecified, unspecified whether with hypoxia or hypercapnia (3) Community acquired bacterial pneumonia ICD Codes: J15.9 - Unspecified bacterial pneumonia (4) HTN (hypertension) ICD Codes: I10 - Essential (primary) hypertension (5) Elevated troponin ICD Codes: R74.8 - Abnormal levels of other serum enzymes Status: Acute Assessment and Plan Continue current program for COPD exac and pneumonia. No clear evidence of ACS. Check echo. Increase activity, PT. Adolfo Mojica MD Aug 31, 2017 19:27
[2017-08-31] MEDS: BUDESONIDE-FORMOTEROL 160/4.5 MCG INHALER INH SCH (21:00)
[2017-08-31] MEDS ORDERED: TEMAZEPAM 15 MG CAP PO PRN (21:00)
--- NOTE | 2017-08-31 23:50 | HHI.PR ---
Subjective Remarks ALERT LESS SOB Objective Vital Signs Date Time Temp Pulse Resp B/P (MAP) Pulse Ox O2 Delivery O2 Flow Rate FiO2 08/31/17 20:00 97.7 87 22 134/65 (88) 94 08/31/17 16:00 98.1 100 20 155/103 (120) 92 08/31/17 15:13 93 Nasal Cannula 3.00 08/31/17 12:00 97.7 102 20 187/86 (119) 93 08/31/17 09:11 Nasal Cannula 3.00 08/31/17 08:00 97.8 89 18 156/71 (99) 94 08/31/17 08:00 96 Nasal Cannula 2.00 08/31/17 04:00 97.6 91 18 140/73 (95) 94 08/31/17 00:37 98.2 90 20 136/59 (84) 95 08/31/17 00:00 Nasal Cannula 2.00 I/O 08/31/17 08/31/17 08/31/17 09/01/17 09/01/17 09/01/17 07:00 15:00 23:00 07:00 15:00 23:00 Intake Total 580 ml Output Total 200 ml Balance -200 ml 580 ml Intake Oral 580 ml Output Urine Total 200 ml # Voids 1 3 # Bowel Movements 1 1 Result Diagram: 08/31/17 0553 08/31/17 0553 Objective Remarks GENERAL: SKIN: Warm and dry. HEAD: Atraumatic. Normocephalic. EYES: Pupils equal and round. No scleral icterus. No injection or drainage. ENT: No nasal bleeding or discharge. Mucous membranes pink and moist. NECK: Trachea midline. No JVD. CARDIOVASCULAR: Regular rate and rhythm. RESPIRATORY: No accessory muscle use. Clear to auscultation. Breath sounds equal bilaterally. GASTROINTESTINAL: Abdomen soft, non-tender, nondistended. Hepatic and splenic margins not palpable. MUSCULOSKELETAL: Extremities without clubbing, cyanosis, or edema. No obvious deformities. NEUROLOGICAL: Awake and alert. No obvious cranial nerve deficits. Motor grossly within normal limits. Five out of 5 muscle strength in the arms and legs. Normal speech. PSYCHIATRIC: Appropriate mood and affect; insight and judgment normal. Assessment and Plan Assessment and Plan COPD EXACERBATION IMPROVING PLAN CONTINUE O2 BRONCHODILATORS INCREASE ACTIVITY Javier Herrera MD Aug 31, 2017 23:50
[2017-09-01] VITALS (8 sets, daily range): BP systolic 137–161; BP diastolic 66–87; PULSE 82–97; RESP 20; TEMP 97.5–98.2; O2SAT 90–94
[2017-09-01] MEDS: RESP: ALBUTEROL 2.5 MG/IPRATROPIUM 0.5 MG NEB (SCH) INH ×4 (04:39→21:27)
[2017-09-01] MEDS: AZITHROMYCIN 250 MG TAB PO SCH (10:05)
[2017-09-01] MEDS: LOSARTAN 50 MG TAB PO SCH (10:05)
[2017-09-01] MEDS: methylPREDNISolone SOD SUCC 40 MG/1 ML VIAL IV PUSH SCH ×2 (10:07→21:10)
[2017-09-01] MEDS: TIOTROPIUM BROMIDE 18 MCG INH INH SCH (10:07)
[2017-09-01] MEDS: HEPARIN SODIUM - SQ 10,000 UNITS/ML VIAL SQ SCH ×2 (10:09→21:10)
[2017-09-01] MEDS: SODIUM CHLORIDE 0.9% FLUSH 10 ML FLUSH IV FLUSH SCH ×2 (10:09→21:10)
[2017-09-01] MEDS: BUDESONIDE-FORMOTEROL 160/4.5 MCG INHALER INH SCH ×2 (10:11→21:09)
--- NOTE | 2017-09-01 10:33 | HHI.PR ---
Subjective Remarks Follow-up COPD exacerbation/respiratory failure/community-acquired pneumonia 08/31/17-patient seen and examined, patient reported improvement or shortness of breath, denies any chest pain, currently afebrile. Nonproductive cough. 09/01/17-patient seen and examined,still with mild tightness in his lung. Looking for discharge home tomorrow. Afebrile. Objective Vitals Vital Signs Date Time Temp Pulse Resp B/P (MAP) Pulse Ox O2 Delivery O2 Flow Rate FiO2 09/01/17 09:44 Nasal Cannula 2.00 09/01/17 09:16 97.5 97 20 138/85 (102) 90 09/01/17 04:41 93 Nasal Cannula 2.00 09/01/17 04:00 97.7 82 20 153/80 (104) 94 09/01/17 04:00 Nasal Cannula 2.00 09/01/17 00:00 Nasal Cannula 2.00 09/01/17 00:00 98.0 87 20 137/66 (89) 93 08/31/17 20:00 Nasal Cannula 2.00 08/31/17 20:00 97.7 87 22 134/65 (88) 94 08/31/17 16:00 98.1 100 20 155/103 (120) 92 08/31/17 15:13 93 Nasal Cannula 3.00 08/31/17 12:00 97.7 102 20 187/86 (119) 93 I/O 08/31/17 08/31/17 08/31/17 09/01/17 09/01/17 09/01/17 07:00 15:00 23:00 07:00 15:00 23:00 Intake Total 580 ml 240 ml Output Total 200 ml Balance -200 ml 580 ml 240 ml Intake Oral 580 ml 240 ml Output Urine Total 200 ml # Voids 1 3 5 # Bowel Movements 1 1 0 Result Diagram: 08/31/17 0553 08/31/17 0553 Objective Remarks GENERAL: NAD SKIN: Warm and dry. HEAD: Normocephalic. EYES: No scleral icterus. No injection or drainage. NECK: Supple, trachea midline. No JVD or lymphadenopathy. CARDIOVASCULAR: Regular rate and rhythm without murmurs, gallops, or rubs. RESPIRATORY: Breath sounds decrease bilaterally. No accessory muscle use. GASTROINTESTINAL: Abdomen soft, non-tender, nondistended. MUSCULOSKELETAL: No cyanosis, or edema. BACK: Nontender without obvious deformity. No CVA tenderness. A/P Problem List: (1) Community acquired bacterial pneumonia ICD Code: J15.9 - Unspecified bacterial pneumonia (2) COPD with exacerbation ICD Code: J44.1 - Chronic obstructive pulmonary disease with (acute) exacerbation (3) Hypoxia ICD Code: R09.02 - Hypoxemia Status: Acute (4) Elevated troponin ICD Code: R74.8 - Abnormal levels of other serum enzymes Status: Acute Assessment and Plan 77-year-old man with COPD exacerbation- Hypoxemic respiratory failure-Resolved Community-acquired pneumonia. CTA pulmonary negative for PE, however does show moderate to severe diffuse centrilobular emphysema, as well as left upper lobe pneumonia. Continue broad-spectrum antibiotics, duo nebs, steroids Q12H. continue Spiriva, Symbicort and Mucinex Appreciate input from pulmonary medicine Maintain oxygen saturation above 92% Hypertension. Continue home amlodipine and Cozaar. Troponin elevation up to 0.13. 2/2 demand ischemia secondary to COPD exacerbation Appreciate input from cardiology DVT prophylaxis. Heparin. Lalo Johnson MD Sep 01, 2017 10:33
[2017-09-01] MEDS: cefTRIAXone INJ 1,000 MG in SODIUM CHLORIDE 0.9% INJ 100 ML IV SCH (13:55)
--- NOTE | 2017-09-01 16:11 | PD.CARD.PN ---
Subjective Subjective Remarks No CP or SOB, feels much better, no exertional symptoms today Objective Medications Current Medications Medications (Trade) Dose Ordered Sig/Bobby Route Start Time Stop Time Status Last Admin (NS Flush) 2 ml UNSCH PRN IV FLUSH 08/30/17 08:30 08/31/17 05:08 (NS Flush) 2 ml BID IV FLUSH 08/30/17 09:00 09/01/17 10:09 (Zofran Inj) 4 mg Q6H PRN IVP 08/30/17 08:30 (Heparin Inj) 5,000 units Q12H SQ 08/30/17 09:00 09/01/17 10:09 (Narcan Inj) 0.4 mg UNSCH PRN IV PUSH 08/30/17 08:30 (Milk Of Magnesia Liq) 30 ml Q12H PRN PO 08/30/17 08:30 (Senokot) 17.2 mg Q12H PRN PO 08/30/17 08:30 (Dulcolax Supp) 10 mg DAILY PRN RECTAL 08/30/17 08:30 (Lactulose Liq) 30 ml DAILY PRN PO 08/30/17 08:30 (Duoneb Neb) 1 ampule Q6HR NEB INH 08/30/17 10:00 09/01/17 09:43 (Atrovent Neb) 0.5 mg Q6HR NEB PRN INH 08/30/17 08:30 (Zithromax) 250 mg Taper DAILY PO 08/30/17 09:00 09/04/17 08:59 09/01/17 10:05 Ceftriaxone Sodium 1000 mg/ Sodium Chloride 100 ml @ 200 mls/hr Q24H IV 08/31/17 12:00 09/01/17 13:55 (Norvasc) 10 mg DAILY PO 08/30/17 13:00 09/01/17 10:05 (Vasotec Inj) 1.25 mg Q6H PRN IV PUSH 08/30/17 12:15 08/31/17 16:20 (SoluMEDROL INJ) 40 mg Q12HR IV PUSH 08/31/17 21:00 09/01/17 10:07 (Symbicort 160-4.5 Mcg Inh) 2 puff Q12HR INH 08/31/17 21:00 09/01/17 10:11 (Spiriva Inh) 18 mcg DAILY INH 09/01/17 09:00 09/01/17 10:07 (Tylenol) 650 mg Q4H PRN PO 08/31/17 12:45 (Restoril) 15 mg HS PRN PO 08/31/17 21:00 (Cozaar) 50 mg DAILY PO 09/01/17 09:00 09/01/17 10:05 Vital Signs / I&O Vital Signs Date Time Temp Pulse Resp B/P (MAP) Pulse Ox O2 Delivery O2 Flow Rate FiO2 09/01/17 13:09 98.0 89 20 142/81 (101) 91 09/01/17 09:44 Nasal Cannula 2.00 09/01/17 09:16 97.5 97 20 138/85 (102) 90 09/01/17 04:41 93 Nasal Cannula 2.00 09/01/17 04:00 97.7 82 20 153/80 (104) 94 09/01/17 04:00 Nasal Cannula 2.00 09/01/17 00:00 Nasal Cannula 2.00 09/01/17 00:00 98.0 87 20 137/66 (89) 93 08/31/17 20:00 Nasal Cannula 2.00 08/31/17 20:00 97.7 87 22 134/65 (88) 94 I/O 08/31/17 08/31/17 08/31/17 09/01/17 09/01/17 09/01/17 07:00 15:00 23:00 07:00 15:00 23:00 Intake Total 580 ml 240 ml Output Total 200 ml Balance -200 ml 580 ml 240 ml Intake Oral 580 ml 240 ml Output Urine Total 200 ml # Voids 1 3 5 # Bowel Movements 1 1 0 Physical Exam GENERAL: In NAD SKIN: Warm and dry. HEAD: Normocephalic. EYES: No scleral icterus. No injection or drainage. NECK: Supple, trachea midline. No JVD or lymphadenopathy. CARDIOVASCULAR: Regular rate and rhythm without murmurs, gallops, or rubs. RESPIRATORY: Breath sounds equal bilaterally. No accessory muscle use. GASTROINTESTINAL: Abdomen soft, non-tender, nondistended. MUSCULOSKELETAL: No cyanosis, trace edema. Assessment and Plan Problem List: (1) COPD with exacerbation ICD Codes: J44.1 - Chronic obstructive pulmonary disease with (acute) exacerbation (2) Respiratory failure ICD Codes: J96.90 - Respiratory failure, unspecified, unspecified whether with hypoxia or hypercapnia (3) Community acquired bacterial pneumonia ICD Codes: J15.9 - Unspecified bacterial pneumonia (4) HTN (hypertension) ICD Codes: I10 - Essential (primary) hypertension (5) Elevated troponin ICD Codes: R74.8 - Abnormal levels of other serum enzymes Status: Acute Assessment and Plan No new cardiac issues. Remains stable from cardiac standpoint. Overall improvement. Continue current program for COPD exacerbation and pneumonia. No clear evidence of ACS. Check echo. Increase activity, PT. QuadratAdolfo MD Sep 01, 2017 16:11
--- NOTE | 2017-09-01 16:34 | HHI.PR ---
Subjective Remarks ALERT LESS SOB Objective Vital Signs Date Time Temp Pulse Resp B/P (MAP) Pulse Ox O2 Delivery O2 Flow Rate FiO2 09/01/17 13:09 98.0 89 20 142/81 (101) 91 09/01/17 09:44 Nasal Cannula 2.00 09/01/17 09:16 97.5 97 20 138/85 (102) 90 09/01/17 04:41 93 Nasal Cannula 2.00 09/01/17 04:00 97.7 82 20 153/80 (104) 94 09/01/17 04:00 Nasal Cannula 2.00 09/01/17 00:00 Nasal Cannula 2.00 09/01/17 00:00 98.0 87 20 137/66 (89) 93 08/31/17 20:00 Nasal Cannula 2.00 08/31/17 20:00 97.7 87 22 134/65 (88) 94 I/O 08/31/17 08/31/17 08/31/17 09/01/17 09/01/17 09/01/17 07:00 15:00 23:00 07:00 15:00 23:00 Intake Total 580 ml 240 ml Output Total 200 ml Balance -200 ml 580 ml 240 ml Intake Oral 580 ml 240 ml Output Urine Total 200 ml # Voids 1 3 5 # Bowel Movements 1 1 0 Result Diagram: 08/31/1753 08/31/17552 Objective Remarks GENERAL: SKIN: Warm and dry. HEAD: Atraumatic. Normocephalic. EYES: Pupils equal and round. No scleral icterus. No injection or drainage. ENT: No nasal bleeding or discharge. Mucous membranes pink and moist. NECK: Trachea midline. No JVD. CARDIOVASCULAR: Regular rate and rhythm. RESPIRATORY: No accessory muscle use. Clear to auscultation. Breath sounds equal bilaterally. GASTROINTESTINAL: Abdomen soft, non-tender, nondistended. Hepatic and splenic margins not palpable. MUSCULOSKELETAL: Extremities without clubbing, cyanosis, or edema. No obvious deformities. NEUROLOGICAL: Awake and alert. No obvious cranial nerve deficits. Motor grossly within normal limits. Five out of 5 muscle strength in the arms and legs. Normal speech. PSYCHIATRIC: Appropriate mood and affect; insight and judgment normal. Assessment and Plan Assessment and Plan COPD EXACERBATION IMPROVING PLAN CONTINUE O2 BRONCHODILATORS INCREASE ACTIVITY Javier Herrera MD Sep 01, 2017 16:33
[2017-09-02] VITALS: BP 141/65; PULSE 97; RESP 20; TEMP 97.2; O2SAT 93
[2017-09-02 04:00] VITALS: BP 138/77; PULSE 90; RESP 18; TEMP 97.4; O2SAT 93
[2017-09-02] MEDS: RESP: ALBUTEROL 2.5 MG/IPRATROPIUM 0.5 MG NEB (SCH) INH ×2 (04:12→11:04)
[2017-09-02 08:00] VITALS: BP 191/88; PULSE 87; RESP 20; TEMP 97.4; O2SAT 92
[2017-09-02] MEDS: BUDESONIDE-FORMOTEROL 160/4.5 MCG INHALER INH SCH (08:43)
[2017-09-02] MEDS: TIOTROPIUM BROMIDE 18 MCG INH INH SCH (08:43)
[2017-09-02] MEDS: AZITHROMYCIN 250 MG TAB PO SCH (08:46)
[2017-09-02] MEDS: LOSARTAN 50 MG TAB PO SCH (08:46)
[2017-09-02] MEDS: HEPARIN SODIUM - SQ 10,000 UNITS/ML VIAL SQ SCH (08:47)
[2017-09-02] MEDS: SODIUM CHLORIDE 0.9% FLUSH 10 ML FLUSH IV FLUSH SCH (08:49)
[2017-09-02] MEDS ORDERED: AZITHROMYCIN 250 MG TAB PO SCH (09:00)
[2017-09-02] MEDS ORDERED: predniSONE 20 MG TAB PO SCH (09:00)
--- NOTE | 2017-09-02 10:30 | HHI.FF ---
Face to Face Verification Diagnosis: (1) Community acquired bacterial pneumonia (2) COPD with exacerbation (3) Respiratory failure (4) Elevated troponin Physical Therapy Order: Evaluate and Treat Home Health Nursing Order: Signs/symptoms of disease process I have seen patient Eduar Youssef on 09/02/17. My clinical findings support the need for the requested home health care services because: Deconditioned w/ increased weakness I certify that my clinical findings support that this patient is homebound because: Poor cardiac reserve Lalo Johnson MD Sep 02, 2017 10:30
[2017-09-02] MEDS ORDERED: SPIRCAP INH (10:39)
[2017-09-02] MEDS ORDERED: PRED20 PO (10:39)
[2017-09-02] MEDS ORDERED: AZIT250T3 PO (10:39)
[2017-09-02] MEDS ORDERED: VENTAER INH (10:39)
[2017-09-02] MEDS ORDERED: IPRA17I INH (10:39)
[2017-09-02] MEDS ORDERED: Budeson-Formot 160-4.5 Mcg Inh INH (10:39)
--- NOTE | 2017-09-02 10:42 | HHI.PR ---
Subjective Remarks Follow-up COPD exacerbation/respiratory failure/community-acquired pneumonia 08/31/17-patient seen and examined, patient reported improvement or shortness of breath, denies any chest pain, currently afebrile. Nonproductive cough. 09/01/17-patient seen and examined,still with mild tightness in his lung. Looking for discharge home tomorrow. Afebrile. 09/02/17-patient seen and examined, reports significant improvement or shortness of breath and denies any chest pain. Currently afebrile. Case discussed with cardiology this morning. Objective Vitals Vital Signs Date Time Temp Pulse Resp B/P (MAP) Pulse Ox O2 Delivery O2 Flow Rate FiO2 09/02/17 08:00 97.4 87 20 191/88 (122) 92 09/02/17 04:00 97.4 90 18 138/77 (97) 93 09/02/17 04:00 Nasal Cannula 2.00 09/02/17 00:00 97.2 97 20 141/65 (90) 93 09/02/17 00:00 Nasal Cannula 2.00 09/01/17 21:29 93 Nasal Cannula 2.00 09/01/17 20:00 98.2 96 20 161/76 (104) 92 09/01/17 20:00 Nasal Cannula 2.00 09/01/17 17:27 97.7 87 20 142/87 (105) 92 09/01/17 13:09 98.0 89 20 142/81 (101) 91 I/O 09/01/17 09/01/17 09/01/17 09/02/17 09/02/17 09/02/17 07:00 15:00 23:00 07:00 15:00 23:00 Intake Total 240 ml 960 ml 240 ml Balance 240 ml 960 ml 240 ml Intake Oral 240 ml 960 ml 240 ml # Voids 5 3 4 # Bowel Movements 0 1 1 Result Diagram: 08/31/17 0553 08/31/17 0553 Imaging Last Impressions Chest X-Ray 08/30/17 0632 Signed Impressions: Service Date/Time: Wednesday, August 30, 2017 06:40 - CONCLUSION: Normal examination. Yonatan Blanco MD CT Angiography 08/30/17 0000 Signed Impressions: Service Date/Time: Wednesday, August 30, 2017 09:12 - CONCLUSION: 1. No CT evidence for pulmonary artery embolism. 2. Moderate to severe diffuse centrilobular emphysema 3. Findings consistent with developing focal left anterior upper lobe pneumonia. Raudel Hi MD Objective Remarks GENERAL: NAD SKIN: Warm and dry. HEAD: Normocephalic. EYES: No scleral icterus. No injection or drainage. NECK: Supple, trachea midline. No JVD or lymphadenopathy. CARDIOVASCULAR: Regular rate and rhythm without murmurs, gallops, or rubs. RESPIRATORY: Breath sounds equal bilaterally. No accessory muscle use. GASTROINTESTINAL: Abdomen soft, non-tender, nondistended. MUSCULOSKELETAL: No cyanosis, or edema. BACK: Nontender without obvious deformity. No CVA tenderness. Procedures None A/P Problem List: (1) Community acquired bacterial pneumonia ICD Code: J15.9 - Unspecified bacterial pneumonia (2) COPD with exacerbation ICD Code: J44.1 - Chronic obstructive pulmonary disease with (acute) exacerbation Status: Resolved (3) Hypoxia ICD Code: R09.02 - Hypoxemia Status: Resolved (4) Elevated troponin ICD Code: R74.8 - Abnormal levels of other serum enzymes Status: Acute Assessment and Plan 77-year-old man with COPD exacerbation-Resolved Hypoxemic respiratory failure-Resolved Community-acquired pneumonia. CTA pulmonary negative for PE, however does show moderate to severe diffuse centrilobular emphysema, as well as left upper lobe pneumonia. Continue broad-spectrum antibiotics, duo nebs, steroids Q12H. continue Spiriva, Symbicort and Mucinex Appreciate input from pulmonary medicine Maintain oxygen saturation above 92% Hypertension. Continue home amlodipine and Cozaar. Troponin elevation up to 0.13. 2/2 demand ischemia secondary to COPD exacerbation Appreciate input from cardiology DVT prophylaxis. Heparin. Lalo Johnson MD Sep 02, 2017 10:41
--- NOTE | 2017-09-02 10:43 | HHI.DS ---
Discharge Summary Admission Date Aug 30, 2017 at 08:24 Discharge Date: Sep 02, 2017 Admitting Diagnosis dyspnea, hypoxia, elevated troponin (1) Community acquired bacterial pneumonia ICD Code: J15.9 - Unspecified bacterial pneumonia (2) COPD with exacerbation ICD Code: J44.1 - Chronic obstructive pulmonary disease with (acute) exacerbation Status: Resolved (3) Hypoxia ICD Code: R09.02 - Hypoxemia Status: Resolved (4) Elevated troponin ICD Code: R74.8 - Abnormal levels of other serum enzymes Status: Acute Procedures None Brief History - From Admission 77-year-old male with a [id number]-uglh smoking history, quitting in the 1995, hypertension, who presents with 3 day history of worsening cough productive of clear sputum, with a 2 day history of worsening shortness of breath. Patient woke up around 2 this morning feeling unable to breathe, and was brought to the ER. Patient reports feeling somewhat better after DuoNeb's, however still short of breath. He reports his has a similar respiratory illness which is getting better. He denies any fevers, chills, chest pain, nausea, vomiting, diarrhea, constipation. CBC/BMP: 08/31/17 0553 08/31/17 0553 Significant Findings Laboratory Tests Test 08/30/17 14:40 08/31/17 05:53 Troponin I 0.09 NG/ML (0.02-0.05) White Blood Count 12.0 TH/MM3 (4.0-11.0) Neutrophils (%) (Auto) 93.6 % (16.0-70.0) Lymphocytes (%) (Auto) 2.5 % (9.0-44.0) Neutrophils # (Auto) 11.2 TH/MM3 (1.8-7.7) Lymphocytes # (Auto) 0.3 TH/MM3 (1.0-4.8) Random Glucose 158 MG/DL (74-106) Albumin 3.2 GM/DL (3.4-5.0) Imaging Last Impressions Chest X-Ray 08/30/17 0632 Signed Impressions: Service Date/Time: Wednesday, August 30, 2017 06:40 - CONCLUSION: Normal examination. Yonatan Blanco MD CT Angiography 08/30/17 0000 Signed Impressions: Service Date/Time: Wednesday, August 30, 2017 09:12 - CONCLUSION: 1. No CT evidence for pulmonary artery embolism. 2. Moderate to severe diffuse centrilobular emphysema 3. Findings consistent with developing focal left anterior upper lobe pneumonia. Raudel Hi MD PE at Discharge GENERAL: NAD SKIN: Warm and dry. HEAD: Normocephalic. EYES: No scleral icterus. No injection or drainage. NECK: Supple, trachea midline. No JVD or lymphadenopathy. CARDIOVASCULAR: Regular rate and rhythm without murmurs, gallops, or rubs. RESPIRATORY: Breath sounds equal bilaterally. No accessory muscle use. GASTROINTESTINAL: Abdomen soft, non-tender, nondistended. MUSCULOSKELETAL: No cyanosis, or edema. BACK: Nontender without obvious deformity. No CVA tenderness. Hospital Course while in the hospital, patient was treated for: COPD exacerbation-Resolved Hypoxemic respiratory failure-Resolved Community-acquired pneumonia. CTA pulmonary negative for PE, however does show moderate to severe diffuse centrilobular emphysema, as well as left upper lobe pneumonia. Treated with broad-spectrum antibiotics, duo nebs, steroids Q12H. continue Spiriva, Symbicort and Mucinex. He Will be discharged home on by mouth antibiotic Appreciate input from pulmonary medicine Maintain oxygen saturation above 92% Hypertension. Treated with home amlodipine and Cozaar. Troponin elevation up to 0.13. 2/2 demand ischemia secondary to COPD exacerbation Appreciate input from cardiology and patient was treated conservatively DVT prophylaxis. Heparin. Pt Condition on Discharge: Good Discharge Disposition: Disch w/ Home Health Serv Discharge Time: > 30 minutes Discharge Instructions DIET: Follow Instructions for: Heart Healthy Diet Activities you can perform: Regular-No Restrictions Follow up Referrals: Cardiology PCP Follow-up - 1 Week New Medications: Albuterol 18 GM Inh (Ventolin Hfa 18 GM Inh) 90 Mcg/Act Aer 2 PUFF INH Q4-6H PRN for SHORTNESS OF BREATH, #1 INHALER 3 Refills Ipratropium HFA 12.9 GM Inh (Atrovent HFA 12.9 GM Inh) 17 Mcg/Actuation Aer 2 PUFF INH Q6HR PRN for SHORTNESS OF BREATH, #1 INHALER 3 Refills Azithromycin (Azithromycin) 250 Mg Tab 250 MG PO DAILY for Infection, #5 TAB Prednisone (Prednisone) 20 Mg Tab 20 MG PO BID for Breathing Treatment, #10 TAB Tiotropium Inh (Spiriva Handihaler) 18 Mcg Cap 18 MCG INH DAILY for Breathing Treatment, #30 CAP 11 Refills 1 capsule = 18 mcg [Budeson-Formot 160-4.5 Mcg Inh] () 60 PUFF AERO 2 PUFF INH Q12HR for Breathing Treatment, #1 11 Refills Continued Medications: Amlodipine (Amlodipine) 10 Mg Tab 10 MG PO DAILY for Blood Pressure Management, #30 TAB 0 Refills Losartan (Losartan) 50 Mg Tab 50 MG PO DAILY for Blood Pressure Management, #30 TAB 0 Refills Lalo Johnson MD Sep 02, 2017 10:43
[2017-09-02 12:00] VITALS: BP 136/63; PULSE 99; RESP 20; TEMP 97.6; O2SAT 91
[2017-09-02] MEDS ORDERED: OXYGENDME NAS.CANULA (12:29)
--- NOTE | 2017-09-02 15:51 | PD.CARD.PN ---
Subjective Subjective Remarks No CP or SOB, feels fine Objective Vital Signs / I&O Vital Signs Date Time Temp Pulse Resp B/P (MAP) Pulse Ox O2 Delivery O2 Flow Rate FiO2 09/02/17 12:00 97.6 99 20 136/63 (87) 91 09/02/17 08:00 97.4 87 20 191/88 (122) 92 09/02/17 07:00 Nasal Cannula 2.00 09/02/17 04:00 97.4 90 18 138/77 (97) 93 09/02/17 04:00 Nasal Cannula 2.00 09/02/17 00:00 97.2 97 20 141/65 (90) 93 09/02/17 00:00 Nasal Cannula 2.00 09/01/17 21:29 93 Nasal Cannula 2.00 09/01/17 20:00 98.2 96 20 161/76 (104) 92 09/01/17 20:00 Nasal Cannula 2.00 09/01/17 17:27 97.7 87 20 142/87 (105) 92 I/O 09/01/17 09/01/17 09/01/17 09/02/17 09/02/17 09/02/17 07:00 15:00 23:00 07:00 15:00 23:00 Intake Total 240 ml 960 ml 240 ml Balance 240 ml 960 ml 240 ml Intake Oral 240 ml 960 ml 240 ml # Voids 5 3 4 # Bowel Movements 0 1 1 Physical Exam GENERAL: In NAD SKIN: Warm and dry. HEAD: Normocephalic. EYES: No scleral icterus. No injection or drainage. NECK: Supple, trachea midline. No JVD or lymphadenopathy. CARDIOVASCULAR: Regular rate and rhythm without murmurs, gallops, or rubs. RESPIRATORY: Breath sounds equal bilaterally. No accessory muscle use. GASTROINTESTINAL: Abdomen soft, non-tender, nondistended. MUSCULOSKELETAL: No cyanosis, trace edema. Assessment and Plan Problem List: (1) COPD with exacerbation ICD Codes: J44.1 - Chronic obstructive pulmonary disease with (acute) exacerbation Status: Resolved (2) Respiratory failure ICD Codes: J96.90 - Respiratory failure, unspecified, unspecified whether with hypoxia or hypercapnia (3) Community acquired bacterial pneumonia ICD Codes: J15.9 - Unspecified bacterial pneumonia (4) HTN (hypertension) ICD Codes: I10 - Essential (primary) hypertension (5) Elevated troponin ICD Codes: R74.8 - Abnormal levels of other serum enzymes Status: Acute Assessment and Plan No new cardiac issues. Remains stable from cardiac standpoint. Overall improvement. Continue current program for COPD exacerbation and pneumonia. No clear evidence of ACS. Increase activity, PT. DC home. Will schedule outpt f/u after discharge. Adolfo Mojica MD Sep 02, 2017 15:51
== END 2017-09-02 12:55 | disposition home health service (06) | DRG 190 ==
LOC: NEPC 06:26 → NEDA 08:24 → NEDH 13:27 → N04A 15:55
PROVIDERS: ADMIT Hospitalist; ATTEND Hospitalist
DX: J44.0 Chronic obstructive pulmonary disease with (acute) lower respiratory infection (principal); J96.91 Respiratory failure, unspecified with hypoxia; J15.9 Unspecified bacterial pneumonia; J44.1 Chronic obstructive pulmonary disease with (acute) exacerbation; I24.8 Other forms of acute ischemic heart disease; I10 Essential (primary) hypertension; Z87.891 Personal history of nicotine dependence
CPT/HCPCS: 36600; 71045; 71275; 80053; 82805; 83880; 84484; 85025; 87804; 93005; 94618; 94640; 94664; 99285; J0696; J1644; J2920; J7512; Q9967

== ENCOUNTER 2018-04-07 14:47 | Inpatient (IN) ==
[2018-04-07 18:46] LABS: Mean Corpuscular HGB Conc 32.4 % (32.0-36.0); Mean Corpuscular Hemoglobin 26.3 pg (27.0-34.0); Mean Corpuscular Volume 81.4 fL (80.0-100.0); Mean Platelet Volume 7.9 fL (7.0-11.0); Platelet Count 424 th/mm3 (150-450); Red Blood Count 4.54 mil/mm3 (4.50-5.90); Red Cell Distribution Width 14.4 % (11.6-17.2); White Blood Count 22.6 th/mm3 (4.0-11.0)
[2018-04-07] MEDS ORDERED: Sodium Chlor 0.9% Inj 500 ML IV.SIG SCH ×2 (19:00→22:00)
[2018-04-07 19:05] LABS: Albumin 2.7 g/dL (3.4-5.0); Anion Gap 10 meq/L (5-15); Aspartate Aminotransferase 14 U/L (15-37); Blood Urea Nitrogen 13 mg/dL (7-18); Calcium 8.6 mg/dL (8.5-10.1); Carbon Dioxide 28.1 meq/L (21.0-32.0); Chloride 100 meq/L (98-107); Glomerular Filtration Rate 66 mL/min (>89); Glucose,Random 148 mg/dL (74-106); Lipase 47 U/L (73-393); Potassium 3.4 meq/L (3.5-5.1); Sodium 138 meq/L (136-145)
--- NOTE | 2018-04-07 19:05 | ED ---
HPI General Chief Complaint: Abdominal Pain Stated Complaint: GI problem/doctor sent Time Seen by Provider: 04/07/18 18:00 Source: patient Mode of arrival: ambulatory Limitations: no limitations History of Present Illness HPI narrative: Patient is a 78-year-old male, past medical history significant for COPD, who presents with complaint of upper abdominal pain for the last several days with intermittent nausea and vomiting. He last vomited yesterday and has had not had any vomiting today. Emesis was nonbilious and nonbloody. He had a small bowel movement earlier this morning has not had any bowel movement since. No diarrhea. No fever nor chills. He has not had any previous abdominal surgeries. He states he is slightly feeling better and wants to eat. He went to see his primary care doctor today who sent him to the emergency department. He denies chest pain, dyspnea. MD complaint: abdominal pain Onset (ago): day(s) Pain Consistency: intermittent Location: epigastric Severity: mild Quality: cramping Radiation: none Migration to: no migration Relieving factors: nothing Associated symptoms: nausea and vomiting Related Data Home Medications Medication Instructions Recorded Confirmed amlodipine 10 mg PO DAILY 04/07/18 04/07/18 budesonide-formoterol [Symbicort] 2 puff INHALATION Q12H 04/07/18 04/07/18 ipratropium bromide [Atrovent HFA] 2 puff INHALATION Q6H PRN 04/07/18 04/07/18 losartan 50 mg PO DAILY 04/07/18 04/07/18 pravastatin 40 mg PO DAILY 04/07/18 04/07/18 tamsulosin 0.4 mg PO DAILY 04/07/18 04/07/18 tiotropium bromide [Spiriva with 1 cap INHALATION DAILY 04/07/18 04/07/18 HandiHaler] Allergies Allergy/AdvReac Type Severity Reaction Status Date / Time No Known Allergies Allergy Unverified 08/30/17 06:41 Review of Systems ROS: all other systems reviewed are negative [facility] Social History Social History Substance History: No History of Abuse Second Hand Smoke Exposure: No Smoking Status: Former smoker Tobacco Type: Cigarettes How Often Do You Have a Drink Containing Alcohol: Never Recent Travel in [facility] within the Last 8 Weeks: No Recent Out of Country Travel within the Last 8 Weeks: No Immunization History Tetanus Immunization: Unsure Exam Narrative Exam Narrative: GENERAL: Well-appearing male in no acute distress SKIN: Focused skin assessment warm/dry. HEAD: Atraumatic. Normocephalic. EYES: Pupils equal and round. No scleral icterus. No injection or drainage. ENT: No nasal bleeding or discharge. Mucous membranes pink and moist. NECK: Trachea midline. No JVD. CARDIOVASCULAR: Regular rate and rhythm. No murmur appreciated. RESPIRATORY: No accessory muscle use. Clear to auscultation. Breath sounds equal bilaterally. GASTROINTESTINAL: Abdomen soft, slight tenderness in the epigastric region with distention. Negative Doyle sign. No pulsatile abdominal mass. No CVA tenderness. Hepatic and splenic margins not palpable. MUSCULOSKELETAL: No obvious deformities. No clubbing. No cyanosis. No edema. NEUROLOGICAL: Awake and alert. No obvious cranial nerve deficits. Motor grossly within normal limits. Normal speech. PSYCHIATRIC: Appropriate mood and affect; insight and judgment normal. Course Initial Documented Vital Signs Temperature 97.7 F 04/07/18 14:55 Pulse Rate 94 H 04/07/18 14:55 Respiratory Rate 15 04/07/18 14:55 Blood Pressure 128/66 04/07/18 14:55 Pulse Oximetry 99 04/07/18 14:55 Last Documented Vital Signs Temperature 97.7 F 04/07/18 14:55 Pulse Rate 94 H 04/07/18 14:55 Respiratory Rate 15 04/07/18 14:55 Blood Pressure 128/66 04/07/18 14:55 Pulse Oximetry 99 04/07/18 14:55 Medical Decision Making [facility] Narrative Medical decision making narrative: Patient is a 78-year-old male who presents with complaint of upper abdominal pain with nausea and vomiting over the last several days that has been improving. He denies any fevers and has been hemodynamically stable on the emergency department. Labs reveal leukocytosis but otherwise unremarkable at this time. Lactate is pending. CT does show what appears to be a colon mass with possible pneumatosis of the bowel. I spoke with Dr. Cowart, surgeon on-call, whom agreed to come see the patient and recommended he be started on Levaquin and Flagyl. I then spoke with Dr. Garcia , hospitalist on-call, who agreed to the admission. Medical Screen Exam Complete: Yes Emergency Medical Condition: Yes Differential Diagnosis Differential Diagnosis: Differential diagnosis includes but is not limited to peptic ulcer disease, pancreatitis, small bowel obstruction. Medical Records Medical records reviewed: Yes I reviewed the patient's medical records. Lab Data Lab results reviewed: Yes I reviewed the patient's lab results. Result diagrams: 04/07/18 18:30 04/07/18 18:30 Lab Results 04/07/18 04/07/18 04/07/18 Range/Units 18:30 18:30 20:35 WBC 22.6 H (4.0-11.0) th/mm3 RBC 4.54 (4.50-5.90) mil/mm3 Hgb 12.0 L (13.0-17.0) gm/dL Hct 37.0 L (39.0-51.0) % MCV 81.4 (80.0-100.0) fL MCH 26.3 L (27.0-34.0) pg MCHC 32.4 (32.0-36.0) % RDW 14.4 (11.6-17.2) % Plt Count 424 (150-450) th/mm3 MPV 7.9 (7.0-11.0) fL Sodium 138 (136-145) meq/L Potassium 3.4 L (3.5-5.1) meq/L Chloride 100 (98-107) meq/L Carbon Dioxide 28.1 (21.0-32.0) meq/L Anion Gap 10 (5-15) meq/L BUN 13 (7-18) mg/dL Creatinine 1.09 (0.60-1.30) mg/dL Estimated GFR 66 L (>89) mL/min Random Glucose 148 H (74-106) mg/dL Calcium 8.6 (8.5-10.1) mg/dL Total Bilirubin 0.5 (0.2-1.0) mg/dL AST 14 L (15-37) U/L ALT 15 (12-78) U/L Alkaline Phosphatase 92 (45-117) U/L Troponin I Less than 0.02 L (0.02-0.05) ng/mL Total Protein 7.3 (6.4-8.2) g/dL Albumin 2.7 L (3.4-5.0) g/dL Lipase 47 L (73-393) U/L Urine Color [place] (Yellw/Straw) Urine Clarity Hazy H (Clear) Urine pH 5.0 (5.0-8.5) Ur Specific [place] 1.027 (1.002-1.035) Urine Protein 100 H (Neg-Trace) mg/dL Urine Glucose (UA) Negative (Negative) mg/dL Urine Ketones Trace H (Negative) mg/dL Urine Occult Blood Negative (Negative) Urine Nitrate Negative (Negative) Urine Bilirubin Negative (Negative) Urine Ictotest Negative (Negative) Urine Urobilinogen 4 or greater (Less than 2) mg/dL Ur Leukocyte Esterase Negative (Negative) Urine RBC 1 (0-3) /hpf Urine WBC 5 (0-5) /hpf Ur Squamous Epith Cells <1 (0-5) /hpf Hyaline Casts 37 (0-3) /lpf Urine Mucus Many H (Occasional) /lpf Micro UA Comment Culture not ind Ur Microscopic Review Not Reportable Urine Culture Comments Culture not ind Imaging Data Attestation: I personally reviewed and interpreted this imaging study as follows : Radiologist's impression: Abdomen/Pelvis CT 04/07/18 18:19 CONCLUSION: 1. Abnormal appearance to the proximal sigmoid colon, highly suspicious for a colonic tumor, with findings suggesting an 8 cm long lobular mass causing apple core narrowing of the lumen. 2. Possible pneumatosis in the right colon. No dilated loops of small bowel. 3. Concentric thickening of the distal esophagus, of uncertain significance. Chest X-Ray 04/07/18 18:19 CONCLUSION: No acute cardiopulmonary disease. ECG Data EKG Prior to Arrival: No Attestation: I personally reviewed and interpreted this ECG as follows: Discharge Plan Discharge Disposition Patient Disposition: 30 Still Patient Discharge Condition Condition: Fair Discharge Details Diagnosis: Pneumatosis of intestines, Colonic mass Physicians Team ED Provider: Lucinda Miller Primary Care Provider: UNKNOWN, Attending Provider: Dwayne Garcia Status ED Status: Admitted Patient
--- NOTE | 2018-04-07 19:08 | XR ---
EXAM DATE: 04/07/2018 6:39 PM EDT AGE/SEX: 78 years / Male INDICATIONS: . Short of breath. CLINICAL DATA: This is the patient's initial encounter. Patient reports that signs and symptoms have been present for 4 - 6 months and indicates a pain score of 0/10. MEDICAL/SURGICAL HISTORY: Hypertension. Chronic obstructive pulmonary disease. None. COMPARISON: [facility] [place], CHEST SINGLE AP, 08/30/2017. . FINDINGS: PA and lateral views of the chest demonstrate the lungs to be symmetrically aerated without evidence of mass, infiltrate or effusion. The cardiomediastinal contours are unremarkable. Osseous structures are intact. CONCLUSION: No acute cardiopulmonary disease. Electronically signed by: Lino Forrester MD 04/07/2018 7:07 PM EDT
[2018-04-07 19:11] LABS: Alanine Aminotransferase 15 U/L (12-78); Alkaline Phosphatase 92 U/L (45-117); Total Protein 7.3 g/dL (6.4-8.2)
--- NOTE | 2018-04-07 21:00 | CT ---
EXAM DATE: 04/07/2018 8:27 PM EDT AGE/SEX: 78 years / Male INDICATIONS: Upper abdomen pain with nausea and vomiting for one week. CLINICAL DATA: This is the patient's initial encounter. Patient reports that signs and symptoms have been present for 1 week and indicates a pain score of 10/10. MEDICAL/SURGICAL HISTORY: None. None. ORAL CONTRAST: No oral contrast ingested. RADIATION DOSE: 13.60 CTDI (mGy) COMPARISON: [facility], CT ABDOMEN AND PELVIS W/O CONTRAST, 09/12/2016. [facility], NM BONE WHOLE BODY W/ BLOOD POOL, 09/12/2016. [facility], CT PULMONARY ANGIOGRAM, 08/30/2017. . TECHNIQUE: Multiple contiguous axial images were obtained through the abdomen and pelvis following b olus infusion of 95 ml Omnipaque 350 (iohexol) nonionic water-soluble contrast as a single exam dos e. No oral contrast ingested. Using automated exposure control and adjustment of the mA and/or kV ac cording to patient size, radiation dose was kept as low as reasonably achievable to obtain optimal di agnostic quality images. DICOM format image data is available electronically for review and comparis on. FINDINGS: Lower Lungs: The visualized lower lungs are clear. There is concentric thickening of the distal esoph ángel, of uncertain significance, but a new finding from prior CT. Liver: The liver has a homogeneous density without space-occupying lesion. There is no dilation of th e biliary tree. No calcified gallstones. Spleen: Homogeneous density without enlargement. Stable diffuse punctate calcifications. Pancreas: Unremarkable without mass or calcification. Kidneys: Normal in size and shape. No evidence of mass or hydronephrosis. Stable left lower pole brynn al cyst. Adrenal Glands: Unremarkable. Aorta: The aorta and proximal iliac vessels are grossly unremarkable without aneurysmal dilation. Bowel/Mesentery: No dilated loops of small bowel. There is an abnormal appearance to the sigmoid col on with irregular and lobular masslike density in the proximal sigmoid colon measuring 8 cm in length and appearing to cause an apple core narrowing of the lumen. There is an abnormal appearance to the right and transverse colon with mild distention and possible pneumatosis in the cecum and right colon . There is a focal collection of fluid anterior to the rectosigmoid junction measuring 3 cm in AP dim ension. No evidence of mesenteric adenopathy. Abdominal Wall: Intact. Retroperitoneum: Numerous retroperitoneal periaortic lymph nodes measuring from several millimeters in size to 1.4 cm, stable in number and size when compared to prior CT. Bladder: Contours are smooth. Reproductive Organs: Enlarged prostate with multiple metallic localization seeds in place. Inguinal: The inguinal region is unremarkable without evidence of adenopathy. Bony Structures: Small sclerotic lesion in the left iliac bone is stable compared to prior CT. CONCLUSION: 1. Abnormal appearance to the proximal sigmoid colon, highly suspicious for a colonic tumor, with fi ndings suggesting an 8 cm long lobular mass causing apple core narrowing of the lumen. 2. Possible pneumatosis in the right colon. No dilated loops of small bowel. 3. Concentric thickening of the distal esophagus, of uncertain significance. Electronically signed by: Lino Forrester MD 04/07/2018 8:58 PM EDT
[2018-04-07 21:02] LABS: Clarity,Urine Hazy (Clear); Color,Urine Amber (Yellw/Straw); Glucose,Urine (UA) Negative (Negative); Hyaline Casts,Urine 37 /lpf (0-3); Leukocyte Esterase,Urine Negative (Negative); Mucus,Urine Many /lpf (Occasional); Nitrite,Urine Negative (Negative); Specific Gravity,Urine 1.027 (1.002-1.035); Squamous Epithelial Cell,Urine <1 /hpf (0-5); Urobilinogen,Urine 4 or Greater mg/dL (Less than 2)
[2018-04-07 21:05] LABS: Bilirubin,Urine Negative (Negative); Ictotest,Urine Negative (Negative)
[2018-04-07] MEDS ORDERED: Prochlorperazine 25 MG Supp RECTAL PRN (22:07)
[2018-04-07] MEDS ORDERED: Bisacodyl 10 MG Supp RECTAL PRN (22:07)
--- NOTE | 2018-04-07 23:01 | P.CONGS ---
[facility] Gen Surgery Consult Note Consult date: 04/07/18 Narrative: 78 yo M presents with 2-3 weeks of abdominal bloating and pain. He has had liquid nonbloody stools since January. Recent nausea and vomiting. Never had a colonoscopy. Currently pain is moderate and located in the epigastrium. H/o prostate ca s/p radiation seeds. Has COPD and was hospitalized in August for pulmonary issues. He can walk down the street and back but is unable to do the same things around the house that he used to do due to shortness of breath. WBC 22,[address] a/p shows large sigmoid mass causing colonic obstruction with associated dilated proximal colon and possible pneumatosis of right colon. Liver normal no evidence of mets. Review of Systems All other systems reviewed negative except as stated in [facility] - History History Provided By: Patient, Medical Record - Medical / Surgical Hx Neg / Unobtainable Surgical History: No Previous Surgery - Medical History Medical History: Medical History (Last Updated 04/07/18 @ 23:49 by Rtuh Gaona) COPD (chronic obstructive pulmonary disease) Clavicle fracture Hypertension Prostate cancer - Tobacco History Second Hand Smoke Exposure: No Tobacco Use In Past 30 Days: No Smoking Status: Former smoker Tobacco Type: Cigarettes - Alcohol History How Often Do You Have a Drink Containing Alcohol: Never - Substance Use History Substance History: No History of Abuse - Travel History Recent Travel in the [place] Within the Last 8 Weeks: No Recent Travel Out of the Country Within the Last 8 Weeks: No - Immunization History Tetanus Immunization: Unsure Medications and Allergies Active Medications: Active Medications Al Hydroxide/Mg Hydroxide (Milk Of Magnesia Liq) 30 ml PO Q12H PRN PRN Reason: Mild Constipation Bisacodyl (Dulcolax Supp) 10 mg RECTAL DAILY PRN PRN Reason: SEVERE CONSITIPATION Sodium Chloride (Ns Inj) 500 mls @ 0 mls/hr IV.SIG BOLUS CARLIE Last Infusion: 04/07/18 19:40 Dose: Infused Sodium Chloride (Ns Inj) 500 mls @ 0 mls/hr IV.SIG BOLUS CARLIE Last Admin: 04/07/18 22:09 Dose: 500 mls/hr Metronidazole/Sodium Chloride (Flagyl 500 Mg Inj) 100 mls @ 100 mls/hr IV.SIG Q6H CARLIE Sodium Chloride (Ns Inj) 1,000 mls @ 100 mls/hr IV.CONT .Q10H CARLIE Lactulose (Lactulose Liq) 30 ml PO DAILY PRN PRN Reason: SEVERE CONSITIPATION Ondansetron HCl (Zofran Inj) 4 mg IV.PUSH Q6H PRN PRN Reason: NAUSEA OR VOMITING Prochlorperazine (Compazine Supp) 25 mg RECTAL Q12HR PRN PRN Reason: NAUSEA OR VOMITING Sennosides (Senokot) 17.2 mg PO Q12H PRN PRN Reason: Moderate Constipation Sodium Chloride (Ns Flush) 2 ml IV.FLUSH PRN PRN PRN Reason: FLUSH AFTER USING IV ACCESS Allergies Allergy/AdvReac Type Severity Reaction Status Date / Time No Known Allergies Allergy Unverified 08/30/17 06:41 Home Medications Medication Instructions Recorded Confirmed Type ipratropium bromide [Atrovent HFA] 2 puff INHALATION Q6H PRN 04/07/18 04/08/18 History tamsulosin 0.4 mg PO DAILY 04/07/18 04/08/18 History tiotropium bromide [Spiriva with 1 cap INHALATION DAILY 04/07/18 04/07/18 History HandiHaler] Exam Vital signs: Vital Signs 04/07/18 14:55 04/07/18 22:54 Temperature 97.7 F Pulse Rate 94 H 94 H Respiratory Rate 15 Blood Pressure 128/66 186/86 H Pulse Oximetry 99 Intake & Output 04/07/18 04/07/18 04/08/18 06:59 18:59 06:59 Intake Total 500 / 500 Balance 500 / 500 Weight 72.575 kg Intake: IV 500 / 500 NS Inj 500 ML @ Wide Open IV. 500 / 500 SIG BOLUS [facility] Rx#:[id number] Narrative: GENERAL: Awake and alert. No acute distress. Cooperative. Does not appear to be in significant pain. HEAD: Normocephalic. Atraumatic. EYES: Pupils equal round and reactive to light bilaterally. No scleral icterus. ENT: Moist oral mucosa. NECK: Trachea midline. CHEST: Mild increased respiratory rate and accessory muscle use. No respiratory distress. CARDIOVASCULAR: Regular rate and rhythm. ABDOMEN: Distended, tympanitic in epigastrium, minimal tenderness. No rebound or guarding. EXTREMITIES: No cyanosis or edema. SKIN: Warm, dry, nonjaundiced. Results - Labs 04/08/18 07:29 09/25/18 07:29 Laboratory Results - last 24 hr 04/07/18 04/07/18 04/07/18 18:30 18:30 20:35 WBC 22.6 H RBC 4.54 Hgb 12.0 L Hct 37.0 L MCV 81.4 MCH 26.3 L MCHC 32.4 RDW 14.4 Plt Count 424 MPV 7.9 Sodium 138 Potassium 3.4 L Chloride 100 Carbon Dioxide 28.1 Anion Gap 10 BUN 13 Creatinine 1.09 Estimated GFR 66 L Random Glucose 148 H Calcium 8.6 Total Bilirubin 0.5 AST 14 L ALT 15 Alkaline Phosphatase 92 Troponin I Less than 0.02 L Total Protein 7.3 Albumin 2.7 L Lipase 47 L Urine Color Zuleyka Urine Clarity Hazy H Urine pH 5.0 Ur Specific [place] 1.027 Urine Protein 100 H Urine Glucose (UA) Negative Urine Ketones Trace H Urine Occult Blood Negative Urine Nitrate Negative Urine Bilirubin Negative Urine Ictotest Negative Urine Urobilinogen 4 or greater Ur Leukocyte Esterase Negative Urine RBC 1 Urine WBC 5 Ur Squamous Epith Cells <1 Hyaline Casts 37 Urine Mucus Many H Micro UA Comment Culture not ind Ur Microscopic Review Not Reportable Urine Culture Comments Culture not ind - Imaging Imaging: ITS Impressions Abdomen/Pelvis CT 04/07/18 18:19 CONCLUSION: 1. Abnormal appearance to the proximal sigmoid colon, highly suspicious for a colonic tumor, with findings suggesting an 8 cm long lobular mass causing apple core narrowing of the lumen. 2. Possible pneumatosis in the right colon. No dilated loops of small bowel. 3. Concentric thickening of the distal esophagus, of uncertain significance. Chest X-Ray 04/07/18 18:19 CONCLUSION: No acute cardiopulmonary disease. CT scan - abdomen: report reviewed, image reviewed CT scan - pelvis: report reviewed, image reviewed Assessment and Plan - Assessment (1) Neoplasm of sigmoid colon Code(s): D49.0 - Neoplasm of unspecified behavior of digestive system Status: Acute (2) Colon obstruction Code(s): K56.609 - Unspecified intestinal obstruction, unspecified as to partial versus complete obstruction Status: Acute (3) Pneumatosis of intestines Code(s): K63.89 - Other specified diseases of intestine Status: Acute - Plan It appears the patient has a large sigmoid cancer causing colonic obstruction with proximal dilation and pneumatosis of the right colon. He does not have peritonitis on exam and is stable. Plan is to proceed with OR tomorrow for exploratory laparotomy, sigmoid resection, possible right colon resection or possibly even subtotal colectomy. Will require ileostomy vs colostomy depending on findings. I discussed the situation in detail with the patient and he understands and desires to proceed. He does have somewhat elevated pulmonary risk due to COPD.
[2018-04-08] MEDS: Sod Chloride 0.9% Inj 1,000 ML IV.CONT SCH ×2 (00:02→13:34)
[2018-04-08 08:12] LABS: Baso % (Auto) 0.2 % (0.0-2.0); Eos % (Auto) 0.2 % (0.0-4.0); Hematocrit 33.6 % (39.0-51.0); Hemoglobin 10.9 gm/dL (13.0-17.0); Lymph # (Auto) 0.6 th/mm3 (1.0-4.8); Lymph % (Auto) 3.3 % (9.0-44.0); Mean Corpuscular HGB Conc 32.5 % (32.0-36.0); Mean Corpuscular Hemoglobin 26.2 pg (27.0-34.0); Mean Corpuscular Volume 80.7 fL (80.0-100.0); Mono # (Auto) 0.9 th/mm3 (0.0-0.9); Mono % (Auto) 4.6 % (0.0-8.0); Neut # (Auto) 17.9 th/mm3 (1.8-7.7); Neut % (Auto) 91.7 % (16.0-70.0); Platelet Count 404 th/mm3 (150-450); Red Blood Count 4.16 mil/mm3 (4.50-5.90); Red Cell Distribution Width 14.8 % (11.6-17.2); White Blood Count 19.5 th/mm3 (4.0-11.0)
[2018-04-08] MEDS ORDERED: Famotidine PF Inj 20 MG/2 ML Vial ONE (08:34)
[2018-04-08] MEDS ORDERED: Scopalamine 1.5 MG Patch T-DERMAL ONE (08:40)
[2018-04-08 08:53] LABS: Alanine Aminotransferase 11 U/L (12-78); Albumin 2.4 g/dL (3.4-5.0); Alkaline Phosphatase 80 U/L (45-117); Anion Gap 8 meq/L (5-15); Aspartate Aminotransferase 17 U/L (15-37); Blood Urea Nitrogen 11 mg/dL (7-18); Calcium 7.7 mg/dL (8.5-10.1); Carbon Dioxide 28.5 meq/L (21.0-32.0); Chloride 104 meq/L (98-107); Glomerular Filtration Rate 84 mL/min (>89); Glucose,Random 115 mg/dL (74-106); Potassium 3.2 meq/L (3.5-5.1); Sodium 140 meq/L (136-145); Total Protein 6.1 g/dL (6.4-8.2)
[2018-04-08] MEDS ORDERED: Succinylcholine Inj 100 MG/5 ML Syringe IV.PUSH ONE (09:30)
[2018-04-08] MEDS ORDERED: Phenylephrine/NS 1000 MCG/10ML Syringe IV.PUSH ONE (09:30)
[2018-04-08] MEDS ORDERED: Lidocaine PF 1% Inj 5 ML Syringe OTHER ONE (09:30)
[2018-04-08] MEDS ORDERED: Neostigmine Inj 5 MG/5 ML Syringe IV.PUSH ONE (09:30)
[2018-04-08] MEDS ORDERED: Glycopyrrolate Inj 1 MG/5 ML Syringe IV.PUSH ONE (09:30)
[2018-04-08] MEDS ORDERED: Sod Chloride 0.9% Inj 1,000 ML IRRIGATION ONE (09:30)
[2018-04-08] MEDS ORDERED: HYDROmorphone PF Inj 2 MG/ML Vial ONE (10:37)
[2018-04-08] MEDS ORDERED: Naloxone Inj 0.4 MG/ML Vial IV.PUSH PRN (12:57)
--- NOTE | 2018-04-08 13:02 | P.OP ---
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 Proximal to mass colon is massively dilated and somewhat friable. Splenic flexure resected due to multiple large serosal tears present during dissection. End colostomy performed. The remainder of the colon though dilated was viable and well perfused. Procedure in detail: Patient was taken to the operating room and placed in the supine position. General endotracheal anesthesia was induced and the abdomen was prepped and draped in usual sterile fashion. Surgical timeout was performed to verify correct patient procedure and site. Midline laparotomy incision was made and dissection carried out through subcutaneous tissue and fascia with electrocautery. The peritoneum was bluntly entered and the incision extended. There was immediately noted to be massively dilated colon. On exploration there was evident to be a large sigmoid mass causing proximal colon dilation. Due to increased diameter the proximal colon was friable. Attention was turned to resection of the large sigmoid mass. Bookwalter retractor was placed. Small bowel was retracted cephalad. Initially, the sigmoid mass was adherent and partially eroding into the left lower abdominal sidewall. Careful dissection with electrocautery and sharp and blunt dissection was used to free the mass at this site. After this was somewhat mobilized, attention was turned to ligation of the left colic and sigmoidal vessels. The mesentery was divided on either side of these vessels which were then clamped and doubly tied with 0 vicryl suture. The sigmoid was further mobilized from surrounding tissue. A mesenteric defect was made at the rectosigmoid and the rectosigmoid colon divided with the contour green load stapler. The remainder of the mesentery was divided with harmonic scalpel. Due to the dilation of the colon colostomy was required. There was not enough healthy descending colon mobilized and therefore the splenic flexure was taken down. During splenic flexure mobilization there was serosal tears due to the extreme friability and dilation of the colon. Therefore the colon was then transected proximally at the distal transverse colon using the DIONI 75 blue load stapler. A circular skin incision was created in the left upper abdomen and dissection carried out through anterior fascia muscle and posterior fascia with electrocautery. The distal transverse colon staple site was brought up through the stoma site.
[2018-04-08] MEDS ORDERED: Morphine Inj 4 MG/ML Vial ONE (13:15)
[2018-04-08] MEDS ORDERED: fentaNYL Citrate Inj 100 MCG/2 ML Ampul ONE (13:15)
[2018-04-08] MEDS ORDERED: Ketorolac Inj 30 MG/ML (IVP) Vial ONE (13:27)
[2018-04-08] MEDS ORDERED: HYDROmorphone PCA Inj 6 MG/30 ML PCA.VIAL PCA ONE (13:27)
[2018-04-08] MEDS: Ketorolac Inj 30 MG/ML (IVP) Vial IV.PUSH SCH ×2 (13:30→20:41)
[2018-04-08] MEDS ORDERED: HYDROmorphone PCA Inj 6 MG/30 ML PCA.VIAL PCA PRN (14:00)
[2018-04-08] MEDS ORDERED: Sodium Chloride 0.9% 2 ML Flush PRN IV.FLUSH (14:04)
--- NOTE | 2018-04-08 14:21 | P.PNWCN ---
Wound Care Nurse Consult Additional information: Attempted to see patient for new ostomy teaching for stoma on LUQ per Doctor Supa's order at 1415. Patient not seen,he is at a procedure. Will see patient tomorrow.
--- NOTE | 2018-04-08 17:31 | P.HP ---
History of Present Illness Primary Care Physician: UNKNOWN History of Present Illness: 78-year-old white male being admitted for refractory nausea/vomiting. Patient started developing nausea vomiting over the last 2 weeks. Initially he had trouble vomiting when he came to ingesting solid foods. Then eventually with softer foods he had the same trouble. Upon the recommendations from his primary care provider he proceeded to the emergency department. In the emergency department he has stable vital signs. CT abdomen demonstrated an obstructing colonic mass. General surgery had been consulted and took the patient to surgery performing a partial colectomy with colostomy. NG tube in place. Patient reports he is never had a colonoscopy in his life. Says he only started seeing regular physician sometime within the last 3 years. Says he has a healthy heart and denies any heart disease. Inpatient Certification: I certify that the inpatient services were ordered in accordance with Medicare regulations governing the order. This includes certification that hospital inpatient services are reasonable and necessary and in the case of services not specified as inpatient-only under 42 CFR 419.22(n), that they are appropriately provided as inpatient services in accordance to with the 2-midnight benchmark under 43 CFR 412.3(e) Estimated Total Length of Stay (Days): 3 Plans for Post Hospital Care: Not yet determined Review of Systems All other systems reviewed negative except as stated in [facility] - History History Provided By: Patient, Medical Record - Medical History Medical History: Medical History (Last Reviewed 04/08/18 @ 17:25 by Yomi Walker MD) COPD (chronic obstructive pulmonary disease) Clavicle fracture Hypertension Prostate cancer - Family History Family History: Family History (Last Reviewed 04/08/18 @ 17:26 by Yomi Walker MD) Other Cancer Diabetes - Social History I have reviewed the patient's Social History: Yes - Tobacco History Second Hand Smoke Exposure: No Tobacco Use In Past 30 Days: No Smoking Status: Former smoker Tobacco Type: Cigarettes - Alcohol History How Often Do You Have a Drink Containing Alcohol: Never - Substance Use History Substance History: No History of Abuse - Travel History Recent Travel in the [place] Within the Last 8 Weeks: No Recent Travel Out of the Country Within the Last 8 Weeks: No - Immunization History Tetanus Immunization: Unsure Medications and Allergies Active Medications: Active Medications Al Hydroxide/Mg Hydroxide (Milk Of Magnesia Liq) 30 ml PO Q12H PRN PRN Reason: Mild Constipation Bisacodyl (Dulcolax Supp) 10 mg RECTAL DAILY PRN PRN Reason: SEVERE CONSITIPATION Diphenhydramine HCl (Benadryl Inj) 25 mg IV.PUSH Q6H PRN PRN Reason: for itching Metronidazole/Sodium Chloride (Flagyl 500 Mg Inj) 100 mls @ 100 mls/hr IV.SIG Q6H [facility] Last Admin: 04/08/18 15:44 Dose: 100 mls/hr Sodium Chloride (Ns Inj) 1,000 mls @ 100 mls/hr IV.CONT .Q10H [facility] Last Admin: 04/08/18 13:34 Dose: 100 mls/hr Hydromorphone/Sodium Chloride (Dilaudid Hair Machine Operator Inj) 6 mg in 30 mls @ 0 mls/hr CARTOGRAPHIC AIDE UNSCH PRN PRN Reason: per CARTOGRAPHIC AIDE parameters Last Admin: 04/08/18 14:10 Dose: 0 mls/hr Acetaminophen (Ofirmev Inj) 1,000 mg in 100 mls @ 400 mls/hr IV.SIG Q6H [facility] Stop: 04/09/18 10:14 Last Admin: 04/08/18 17:12 Dose: 400 mls/hr Levofloxacin/Dextrose (Levaquin 750 Mg Premix Inj) 150 mls @ 100 mls/hr IV.SIG Q24H [facility] Ketorolac Tromethamine (Toradol Inj) 15 mg IV.PUSH Q6H [facility] Stop: 04/13/18 13:59 Last Admin: 04/08/18 13:30 Dose: 15 mg Lactulose (Lactulose Liq) 30 ml PO DAILY PRN PRN Reason: SEVERE CONSITIPATION Miscellaneous Information (Mis Nursing Information) 1 each OTHER UNSCH PRN PRN Reason: SEE LABEL COMMENTS Stop: 04/09/18 14:07 Naloxone HCl (Narcan Inj) 0.4 mg IV.PUSH PRN PRN PRN Reason: SEE LABEL COMMENTS Ondansetron HCl (Zofran Inj) 4 mg IV.PUSH Q6H PRN PRN Reason: NAUSEA OR VOMITING Prochlorperazine (Compazine Supp) 25 mg RECTAL Q12HR PRN PRN Reason: NAUSEA OR VOMITING Sennosides (Senokot) 17.2 mg PO Q12H PRN PRN Reason: Moderate Constipation Sodium Chloride (Ns Flush) 2 ml IV.FLUSH BID CARLIE Sodium Chloride (Ns Flush) 2 ml IV.FLUSH PRN PRN PRN Reason: FLUSH AFTER USING IV ACCESS Allergies Allergy/AdvReac Type Severity Reaction Status Date / Time No Known Allergies Allergy Unverified 08/30/17 06:41 Home Medications Medication Instructions Recorded Confirmed Type ipratropium bromide [Atrovent HFA] 2 puff INHALATION Q6H PRN 04/07/18 04/08/18 History tamsulosin 0.4 mg PO DAILY 04/07/18 04/08/18 History tiotropium bromide [Spiriva with 1 cap INHALATION DAILY 04/07/18 04/07/18 History HandiHaler] Exam Vital signs: Vital Signs 04/07/18 22:54 04/08/18 00:00 04/08/18 04:00 Temperature 98.2 F 98 F Pulse Rate 94 H 82 90 Respiratory Rate 16 16 Blood Pressure 186/86 H 148/67 H 160/88 H Pulse Oximetry 95 96 04/08/18 08:00 04/08/18 08:25 04/08/18 13:00 Temperature 98.1 F 98.2 F Pulse Rate 108 H 90 107 H Respiratory Rate 18 19 20 Blood Pressure 135/76 118/86 Pulse Oximetry 96 91 L 04/08/18 13:15 04/08/18 13:30 04/08/18 13:45 Temperature Pulse Rate 104 H 104 H 104 H Respiratory Rate 18 22 20 Blood Pressure 118/58 L 120/58 L 120/56 L Pulse Oximetry 92 L 94 L 93 L 04/08/18 14:00 Temperature 98.3 F Pulse Rate 104 H Respiratory Rate 20 Blood Pressure 127/61 Pulse Oximetry 94 L Intake & Output 04/07/18 04/08/18 04/08/18 18:59 06:59 18:59 Intake Total 1350 / 1350 3500 / 3500 Output Total 350 / 350 Balance 1350 / 1350 3150 / 3150 Weight 72.575 kg 72.7 kg Intake: IV 1350 / 1350 1100 / 1100 NS Inj 1,000 ML @ 100 mls/hr IV 1000 / 1000 .CONT .Q10H [facility] Rx#:[id number] Levaquin 750 mg Premix Inj 150 150 / 150 ML @ 100 mls/hr IV.SIG ONCE ONE Rx#:[id number] NS Inj 500 ML @ Wide Open IV. 1000 / 1000 SIG BOLUS [facility] Rx#:[id number] Flagyl 500 MG Inj 100 ML @ 100 200 / 200 100 / 100 mls/hr IV.SIG Q6H [facility] Rx#: [id number] Anesthesia Amount 2400 / 2400 Output: Estimated Blood Loss 250 / 250 Urine Amount (Catheter) 100 / 100 Indwelling Urethral Catheter 100 / 100 Other: # Voids 2 # Bowel Movements 1 Weight On Admission 72.7 kg Narrative: VS: afebrile GENERAL: NAD SKIN: Warm and dry. EYES: No scleral icterus. No injection or drainage. ENT: NG tube in place; NC;AT CARDIOVASCULAR: Regular rate and rhythm. no murmurs RESPIRATORY: No accessory muscle use. Clear to auscultation. Breath sounds equal bilaterally. GASTROINTESTINAL: Abdomen soft, non-tender, intact colostomy Extremities: No clubbing, cyanosis. BLEs with SCDs. MUSCULOSKELETAL: adequate muscle bulk and tone for age and habitus NEUROLOGICAL: Awake and alert. No obvious cranial nerve deficits. No facial droop nor slurred speech noted. PSYCHIATRIC: Appropriate mood and affect; insight and judgment normal. Results - Labs CBC & Chem 7: 04/09/18 03:59 04/09/18 17:55 Labs: Laboratory Results - last 24 hr 04/07/18 04/07/18 04/07/18 18:30 18:30 20:35 WBC 22.6 H RBC 4.54 Hgb 12.0 L Hct 37.0 L MCV 81.4 MCH 26.3 L MCHC 32.4 RDW 14.4 Plt Count 424 MPV 7.9 Neut % (Auto) Lymph % (Auto) [place] % (Auto) Eos % (Auto) Baso % (Auto) Neut # (Auto) Lymph # (Auto) [place] # (Auto) Eos # (Auto) Baso # (Auto) WBC Differential Differential Comment Sodium 138 Potassium 3.4 L Chloride 100 Carbon Dioxide 28.1 Anion Gap 10 BUN 13 Creatinine 1.09 Estimated GFR 66 L Random Glucose 148 H Lactic Acid Calcium 8.6 Total Bilirubin 0.5 AST 14 L ALT 15 Alkaline Phosphatase 92 Troponin I Less than 0.02 L Total Protein 7.3 Albumin 2.7 L Lipase 47 L Urine Color [place]ka Urine Clarity Hazy H Urine pH 5.0 Ur Specific [place] 1.027 Urine Protein 100 H Urine Glucose (UA) Negative Urine Ketones Trace H Urine Occult Blood Negative Urine Nitrate Negative Urine Bilirubin Negative Urine Ictotest Negative Urine Urobilinogen 4 or greater Ur Leukocyte Esterase Negative Urine RBC 1 Urine WBC 5 Ur Squamous Epith Cells <1 Hyaline Casts 37 Urine Mucus Many H Micro UA Comment Culture not ind Ur Microscopic Review Not Reportable Urine Culture Comments Culture not ind Blood Type Blood Type Recheck Antibody Screen MTS Gel Crossmatch 04/07/18 04/08/18 04/08/18 23:05 07:29 07:29 WBC 19.5 H RBC 4.16 L Hgb 10.9 L Hct 33.6 L MCV 80.7 MCH 26.2 L MCHC 32.5 RDW 14.8 Plt Count 404 MPV 8.0 Neut % (Auto) 91.7 H Lymph % (Auto) 3.3 L [place] % (Auto) 4.6 Eos % (Auto) 0.2 Baso % (Auto) 0.2 Neut # (Auto) 17.9 H Lymph # (Auto) 0.6 L [place] # (Auto) 0.9 Eos # (Auto) 0.0 Baso # (Auto) 0.0 WBC Differential . Differential Comment Auto diff final Sodium 140 Potassium 3.2 L Chloride 104 Carbon Dioxide 28.5 Anion Gap 8 BUN 11 Creatinine 0.88 Estimated GFR 84 L Random Glucose 115 H Lactic Acid 2.0 Calcium 7.7 L D Total Bilirubin 0.4 AST 17 ALT 11 L Alkaline Phosphatase 80 Troponin I Total Protein 6.1 L D Albumin 2.4 L Lipase Urine Color Urine Clarity Urine pH Ur Specific [place] Urine Protein Urine Glucose (UA) Urine Ketones Urine Occult Blood Urine Nitrate Urine Bilirubin Urine Ictotest Urine Urobilinogen Ur Leukocyte Esterase Urine RBC Urine WBC Ur Squamous Epith Cells Hyaline Casts Urine Mucus Micro UA Comment Ur Microscopic Review Urine Culture Comments Blood Type Blood Type Recheck Antibody Screen MTS Gel Crossmatch 04/08/18 09:48 WBC RBC Hgb Hct MCV MCH MCHC RDW Plt Count MPV Neut % (Auto) Lymph % (Auto) [place] % (Auto) Eos % (Auto) Baso % (Auto) Neut # (Auto) Lymph # (Auto) [place] # (Auto) Eos # (Auto) Baso # (Auto) WBC Differential Differential Comment Sodium Potassium Chloride Carbon Dioxide Anion Gap BUN Creatinine Estimated GFR Random Glucose Lactic Acid Calcium Total Bilirubin AST ALT Alkaline Phosphatase Troponin I Total Protein Albumin Lipase Urine Color Urine Clarity Urine pH Ur Specific [place] Urine Protein Urine Glucose (UA) Urine Ketones Urine Occult Blood Urine Nitrate Urine Bilirubin Urine Ictotest Urine Urobilinogen Ur Leukocyte Esterase Urine RBC Urine WBC Ur Squamous Epith Cells Hyaline Casts Urine Mucus Micro UA Comment Ur Microscopic Review Urine Culture Comments Blood Type O Negative Blood Type Recheck Required Antibody Screen Negative MTS Gel Crossmatch See Detail - Imaging Impressions Abdomen/Pelvis CT 04/07/18 18:19 CONCLUSION: 1. Abnormal appearance to the proximal sigmoid colon, highly suspicious for a colonic tumor, with findings suggesting an 8 cm long lobular mass causing apple core narrowing of the lumen. 2. Possible pneumatosis in the right colon. No dilated loops of small bowel. 3. Concentric thickening of the distal esophagus, of uncertain significance. Chest X-Ray 04/07/18 18:19 CONCLUSION: No acute cardiopulmonary disease. Caprini VTE Risk Assessment Caprini VTE Risk Assessment: Moderate/High Risk (score >= 2) Caprini Risk Assessment Model: Point Value = 1 Point Value = 2 Point Value = 3 Point Value = 5 Age 41-60 Minor surgery BMI > 25 kg/m2 Swollen legs Varicose veins or History of unexplained or recurrent spontaneous Oral contraceptives or hormone replacement Sepsis (< 1 month) Serious lung disease, including pneumonia (< 1 month) Abnormal pulmonary function Acute myocardial infarction Congestive heart failure (< 1 month) History of inflammatory bowel disease Medical patient at bed rest Age 61-74 Arthroscopic surgery Major open surgery (> 45 min) Laparoscopic surgery (> 45 min) Malignancy Confined to bed (> 72 hours) Immobilizing plaster cast Central venous access Age >= 75 History of VTE Family history of VTE Factor V Leiden Prothrombin [id number] Lupus anticoagulant Anticardiolipin antibodies Elevated serum homocysteine Heparin-induced thrombocytopenia Other congenital or acquired thrombophilia Stroke (< 1 month) Elective arthroplasty Hip, pelvis, or leg fracture Acute spinal cord injury (< 1 month) Prophylaxis Regimen: Total Risk Factor Score Risk Level Prophylaxis Regimen 0-1 Low Early ambulation 2 Moderate Order ONE of the following: *Sequential Compression Device (SCD) *Heparin 5000 units SQ BID 3-4 Higher Order ONE of the following medications: *Heparin 5000 units SQ TID *Enoxaparin/Lovenox 40 mg SQ daily (WT < 150 kg, CrCl > 30 mL/min) *Enoxaparin/Lovenox 30 mg SQ daily (WT < 150 kg, CrCl > 10-29 mL/min) *Enoxaparin/Lovenox 30 mg SQ BID (WT < 150 kg, CrCl > 30 mL/min) AND/OR *Sequential Compression Device (SCD) 5 or more Highest Order ONE of the following medications: *Heparin 5000 units SQ TID (Preferred with Epidurals) *Enoxaparin/Lovenox 40 mg SQ daily (WT < 150 kg, CrCl > 30 mL/min) *Enoxaparin/Lovenox 30 mg SQ daily (WT < 150 kg, CrCl > 10-29 mL/min) *Enoxaparin/Lovenox 30 mg SQ BID (WT < 150 kg, CrCl > 30 mL/min) AND *Sequential Compression Device (SCD) Assessment and Plan - Plan 78 y/o WM admitted with acute n/v with colonic mass. colonic mass with pneumatosis of the right colon - s/p partial colectomy and colostomy was suspicious for adenocarcinoma -Surgery following, currently with NG tube with low intermittent suction -IV fluids, pain control Oncology consultation; will defer further imaging to oncology Distal thickening of esophagus with unspecified significance -Possibly secondary to obstruction of food boluses within the GI tract. Monitor clinically SCDs Lovenox once cleared with surgery
--- NOTE | 2018-04-08 17:46 | ECG ---
Date Performed: 04/07/2018 Time Performed: 18:18:58 PTAGE: 78 years EKG: Sinus rhythm CONSIDER INFERIOR MYOCARDIAL INFARCTION, AGE INDETERMINATE ABNORMAL ECG PREVIOUS TRACING : 08/30/2017 14.36 DOCTOR: Cisco Whitney Interpretating Date/Time 04/08/2018 18:03:23
--- NOTE | 2018-04-08 20:55 | MB ---
cc: Shine Paris MD DATE: 04/08/2018 ATTENDING PHYSICIAN: Yomi Walker MD REASON FOR CONSULTATION: Oncology consulted an opinion regarding patient with newly diagnosed colon cancer. HISTORY OF PRESENT ILLNESS: The patient is a 78-year-old male who presented to the hospital with intractable nausea and vomiting for the last 2 weeks. The patient stated he has been having liquid stools for at least 2 months. He never had colonoscopy before. He has not seen a doctor for many years. He started having abdominal pain. He lost about 10 pounds. He came to the hospital and CT scan showed a large sigmoid mass causing obstruction. He denies any fever or chills. He denies any chest pain. He has baseline shortness of breath due to COPD. He has no urinary changes. Denies any bone pain. Denies any dysuria or hematuria. PAST MEDICAL HISTORY: 1. Chronic obstructive pulmonary disease. 2. Clavicle fracture. 3. Hypertension. 4. Prostate cancer treated with radiation seed about a year ago. PAST SURGICAL HISTORY: Biopsy of prostate. SOCIAL HISTORY: Quit tobacco age 57. He smoked for about 40 years. He quit alcohol. FAMILY HISTORY: Lives with his ex-. He has no children. No siblings. ALLERGIES: NO KNOWN DRUG ALLERGIES. CURRENT MEDICATIONS: 1. Dulcolax. 2. Toradol. 3. Levaquin. 4. Flagyl. REVIEW OF SYSTEMS: CONSTITUTIONAL: As above. EYES: Negative. ENT: Negative. CARDIOVASCULAR: No chest pressure or palpitation. RESPIRATORY: As above. GASTROINTESTINAL: As above. GENITOURINARY: Negative. MUSCULOSKELETAL: Negative. HEMATOLOGIC: Negative. ENDOCRINE: Negative. HEMATOLOGIC: Negative. PSYCHIATRIC: Negative. NEUROLOGIC: Negative. PHYSICAL EXAMINATION: VITAL SIGNS: Temperature 97.1, blood pressure 112/73, O2 saturation 92% on 3 liters nasal cannula. GENERAL: He is alert, oriented x3, no acute distress. HEENT: Atraumatic, normocephalic. Pupils are equal, round, reactive to light. Extraocular muscles are intact. No scleral icterus. Oropharynx dry mucosa. NECK: No thyromegaly. No palpable mass. LYMPHATIC: No palpable cervical, clavicular, axillary, or inguinal lymph nodes. CARDIOVASCULAR: Regular S1, S2. No murmur. LUNGS: Clear to auscultation. No wheeze or rhonchi. ABDOMEN: Soft. Decreased bowel sounds. Colostomy noted. The surgical site dressing is dry. EXTREMITIES: No cyanosis, clubbing or edema. SKIN: No rash. NEUROLOGIC: Nonfocal. LABORATORY DATA: I reviewed his lab work drawn over the last 2 days. ASSESSMENT: 1. Large sigmoid colon mass. He never had colonoscopy. He has been having diarrhea for the last 2 months. He started having increased abdominal pain, nausea and vomiting for the last 2 weeks. On presentation, CT of the abdomen and pelvis showed a large mass in the proximal sigmoid colon with apple core narrowing of the lumen. There was no significant adenopathy noted. There are a few periaortic lymph node that measured 7 mm to about 1.4 cm. Stable in number and size compared to prior CT scan from 2017. He was evaluated by Dr. Cowart and underwent extended left colectomy with end colostomy this afternoon. Surgical pathology is pending. Explained the CT finding to the patient. His questions were answered. We will check a tumor marker. We will also get a CT of the chest for staging once he is a little bit more stable. 2. Leukocytosis consistent with reactive process. He is currently on antibiotic. 3. Chronic obstructive pulmonary disease. He has baseline shortness of breath. 4. Hypertension. 5. History of prostate cancer treated with radiation about a year ago. RECOMMENDATIONS: 1. Review of CT finding and discussion with the patient. 2. Await final surgical pathology. 3. Check CEA level. 4. We will get CT of the chest once he is more stable. Thank you Dr. Walker for asking me to see this patient. Shine Paris MD BY/ct , 07:43 PM , 07:56 PM JACOB
[2018-04-08] MEDS: Sodium Chloride 0.9% 2 ML Flush BID IV.FLUSH SCH (21:58)
[2018-04-09] MEDS: Ketorolac Inj 30 MG/ML (IVP) Vial IV.PUSH SCH ×4 (02:05→21:34)
[2018-04-09] MEDS: Sod Chloride 0.9% Inj 1,000 ML IV.CONT SCH ×3 (02:08→13:33)
[2018-04-09 04:59] LABS: Eos % (Auto) 0.2 % (0.0-4.0); Hematocrit 35.4 % (39.0-51.0); Hemoglobin 10.9 gm/dL (13.0-17.0); Lymph # (Auto) 0.3 th/mm3 (1.0-4.8); Lymph % (Auto) 1.7 % (9.0-44.0); Mean Corpuscular Hemoglobin 25.8 pg (27.0-34.0); Mean Corpuscular Volume 83.5 fL (80.0-100.0); Mean Platelet Volume 8.1 fL (7.0-11.0); Mono # (Auto) 0.6 th/mm3 (0.0-0.9); Mono % (Auto) 3.3 % (0.0-8.0); Neut # (Auto) 17.3 th/mm3 (1.8-7.7); Neut % (Auto) 94.8 % (16.0-70.0); Platelet Count 378 th/mm3 (150-450); Red Blood Count 4.24 mil/mm3 (4.50-5.90); Red Cell Distribution Width 14.8 % (11.6-17.2); White Blood Count 18.2 th/mm3 (4.0-11.0)
[2018-04-09 05:08] LABS: Mean Corpuscular HGB Conc 30.9 % (32.0-36.0)
[2018-04-09 05:22] LABS: Calcium 7.5 mg/dL (8.5-10.1); Carbon Dioxide 25.5 meq/L (21.0-32.0); Carcinoembryonic Antigen 0.8 ng/mL (0.2-5.0); Potassium 5.3 meq/L (3.5-5.1)
[2018-04-09] MEDS: Sodium Chloride 0.9% 2 ML Flush BID IV.FLUSH SCH ×2 (09:50→21:35)
[2018-04-09] MEDS ORDERED: Sod Chloride 0.9% Inj 1,000 ML IV.SIG SCH ×2 (11:45→14:42)
--- NOTE | 2018-04-09 11:48 | P.PNGS ---
Subjective Interval history: He is up in chair and states feeling well with minimal pain. UOP has been marginal with elevated BUN/Cr today. Received 500cc bolus earlier. Physical Exam Vital signs: Vital Signs 04/08/18 13:00 04/08/18 13:15 04/08/18 13:30 Temperature 98.2 F Pulse Rate 107 H 104 H 104 H Respiratory Rate 20 18 22 Blood Pressure 118/86 118/58 L 120/58 L Pulse Oximetry 91 L 92 L 94 L 04/08/18 13:45 04/08/18 14:00 04/08/18 16:00 Temperature 98.3 F 97.1 F L Pulse Rate 104 H 104 H 101 H Respiratory Rate 20 20 18 Blood Pressure 120/56 L 127/61 112/73 Pulse Oximetry 93 L 94 L 92 L 04/08/18 20:00 04/08/18 22:28 04/09/18 00:00 Temperature 97.7 F 97.6 F Pulse Rate 98 H 94 H Respiratory Rate 20 21 16 Blood Pressure 110/60 118/56 L Pulse Oximetry 94 L 95 04/09/18 04:00 04/09/18 08:00 04/09/18 10:05 Temperature 97.6 F 97.9 F Pulse Rate 91 H 89 Respiratory Rate 19 19 Blood Pressure 102/57 L 111/56 L Pulse Oximetry 93 L 94 L 93 L Intake & Output 04/08/18 04/09/18 04/09/18 18:59 06:59 18:59 Intake Total 3700 / 3700 1550 / 1550 200 / 200 Output Total 350 / 350 200 / 200 36 / 36 Balance 3350 / 3350 1350 / 1350 164 / 164 Weight 77 kg Intake: IV 1300 / 1300 1550 / 1550 200 / 200 NS Inj 1,000 ML @ 100 mls/hr IV 1000 / 1000 1000 / 1000 .CONT .Q10H [facility] Rx#:[id number] Ofirmev Inj 1,000 mg In 100 ml 100 / 100 200 / 200 100 / 100 @ 400 mls/hr IV.SIG Q6H [facility] Rx# :[id number] Levaquin 750 mg Premix Inj 150 150 / 150 ML @ 100 mls/hr IV.SIG Q24H [facility] Rx#:[id number] Flagyl 500 MG Inj 100 ML @ 100 200 / 200 200 / 200 100 / 100 mls/hr IV.SIG Q6H [facility] Rx#: [id number] Anesthesia Amount 2400 / 2400 Output: Estimated Blood Loss 250 / 250 Urine Amount (Catheter) 100 / 100 200 / 200 36 / 36 Indwelling Urethral Catheter 100 / 100 200 / 200 36 / 36 Stool Amount (Stoma) 0 / 0 Left Lower Abdomen 0 / 0 Gastric Drainage 0 / 0 Right Nare Nasogastric Tube 0 / 0 Narrative: NAD, sitting in chair Nonlabored breathing, room air Abd: mod distention, inc with bandage in place, colostomy with small amt stool output, purple color - Urinary Catheter Management Indwelling Urethral Catheter Cath placed during this visit: yes Reason for continuing: Not indwelling catheter Insertion date: 04/08/18 Insertion time: 09:50 Results - Labs 04/09/18 03:59 04/09/18 03:59 Laboratory Results - last 24 hr 04/09/18 04/09/18 03:59 03:59 WBC 18.2 H RBC 4.24 L Hgb 10.9 L Hct 35.4 L MCV 83.5 MCH 25.8 L MCHC 30.9 L RDW 14.8 Plt Count 378 MPV 8.1 Neut % (Auto) 94.8 H Lymph % (Auto) 1.7 L [place] % (Auto) 3.3 Eos % (Auto) 0.2 Baso % (Auto) 0.0 Neut # (Auto) 17.3 H Lymph # (Auto) 0.3 L [place] # (Auto) 0.6 Eos # (Auto) 0.0 Baso # (Auto) 0.0 WBC Differential . Differential Comment Auto diff final Sodium 144 Potassium 5.3 H D Chloride 108 H Carbon Dioxide 25.5 Anion Gap 11 BUN 21 H Creatinine 1.83 H Estimated GFR 36 L Random Glucose 109 H Calcium 7.5 L Carcinoembryonic Ag 0.8 - Imaging Imaging: ITS Impressions Abdomen/Pelvis CT 04/07/18 18:19 CONCLUSION: 1. Abnormal appearance to the proximal sigmoid colon, highly suspicious for a colonic tumor, with findings suggesting an 8 cm long lobular mass causing apple core narrowing of the lumen. 2. Possible pneumatosis in the right colon. No dilated loops of small bowel. 3. Concentric thickening of the distal esophagus, of uncertain significance. Chest X-Ray 04/07/18 18:19 CONCLUSION: No acute cardiopulmonary disease. 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 Stable post op but with marginal UOP and elevated BUN/Cr. Bolus 1 L NS. Repeat BMP this afternoon. Continue veras. NPO, cont NGT. OXYACETYLENE BURNER for pain. DVT proph: SCDs. Heparin.
[2018-04-09 12:13] VITALS: RESP 18
--- NOTE | 2018-04-09 13:24 | P.PNONC ---
Subjective Interval history: Patient sitting in chair, visiting with . Afebrile. Status post colectomy yesterday. Patient has no complaints at this time. Objective Vital Signs/Intake & Output: Vital Signs 04/08/18 13:15 04/08/18 13:30 04/08/18 13:45 Temperature Pulse Rate 104 H 104 H 104 H Respiratory Rate 18 22 20 Blood Pressure 118/58 L 120/58 L 120/56 L Pulse Oximetry 92 L 94 L 93 L 04/08/18 14:00 04/08/18 16:00 04/08/18 20:00 Temperature 98.3 F 97.1 F L 97.7 F Pulse Rate 104 H 101 H 98 H Respiratory Rate 20 18 20 Blood Pressure 127/61 112/73 110/60 Pulse Oximetry 94 L 92 L 94 L 04/08/18 22:28 04/09/18 00:00 04/09/18 04:00 Temperature 97.6 F 97.6 F Pulse Rate 94 H 91 H Respiratory Rate 21 16 19 Blood Pressure 118/56 L 102/57 L Pulse Oximetry 95 93 L 04/09/18 08:00 04/09/18 10:05 04/09/18 12:00 Temperature 97.9 F 97.9 F Pulse Rate 89 93 H Respiratory Rate 19 18 Blood Pressure 111/56 L 106/57 L Pulse Oximetry 94 L 93 L 88 L Intake & Output 04/08/18 04/09/18 04/09/18 18:59 06:59 18:59 Intake Total 3700 / 3700 1550 / 1550 200 / 200 Output Total 350 / 350 200 / 200 36 / 36 Balance 3350 / 3350 1350 / 1350 164 / 164 Weight 77 kg Intake: IV 1300 / 1300 1550 / 1550 200 / 200 NS Inj 1,000 ML @ 100 mls/hr IV 1000 / 1000 1000 / 1000 .CONT .Q10H [facility] Rx#:[id number] Ofirmev Inj 1,000 mg In 100 ml 100 / 100 200 / 200 100 / 100 @ 400 mls/hr IV.SIG Q6H [facility] Rx# :[id number] Levaquin 750 mg Premix Inj 150 150 / 150 ML @ 100 mls/hr IV.SIG Q24H [facility] Rx#:[id number] Flagyl 500 MG Inj 100 ML @ 100 200 / 200 200 / 200 100 / 100 mls/hr IV.SIG Q6H [facility] Rx#: [id number] Anesthesia Amount 2400 / 2400 Output: Estimated Blood Loss 250 / 250 Urine Amount (Catheter) 100 / 100 200 / 200 36 / 36 Indwelling Urethral Catheter 100 / 100 200 / 200 36 / 36 Stool Amount (Stoma) 0 / 0 Left Lower Abdomen 0 / 0 Gastric Drainage 0 / 0 Right Nare Nasogastric Tube 0 / 0 Result Diagrams: 04/09/18 03:59 04/09/18 03:59 Laboratory Results: Laboratory Results - last 24 hr 04/09/18 04/09/18 03:59 03:59 WBC 18.2 H RBC 4.24 L Hgb 10.9 L Hct 35.4 L MCV 83.5 MCH 25.8 L MCHC 30.9 L RDW 14.8 Plt Count 378 MPV 8.1 Neut % (Auto) 94.8 H Lymph % (Auto) 1.7 L [place] % (Auto) 3.3 Eos % (Auto) 0.2 Baso % (Auto) 0.0 Neut # (Auto) 17.3 H Lymph # (Auto) 0.3 L [place] # (Auto) 0.6 Eos # (Auto) 0.0 Baso # (Auto) 0.0 WBC Differential . Differential Comment Auto diff final Sodium 144 Potassium 5.3 H D Chloride 108 H Carbon Dioxide 25.5 Anion Gap 11 BUN 21 H Creatinine 1.83 H Estimated GFR 36 L Random Glucose 109 H Calcium 7.5 L Carcinoembryonic Ag 0.8 Medications: Active Medications Generic Name Dose Route Start Last Admin Trade Name Freq PRN Reason Stop Dose Admin Metronidazole/Sodium Chloride 100 mls @ 100 mls/hr 04/08/18 04:00 04/09/18 11 :28 Flagyl 500 Mg Inj IV.SIG Infused Q6H CARLIE Infusion Sodium Chloride 1,000 mls @ 100 mls/hr 04/07/18 22:15 04/09/18 04:27 Ns Inj IV.CONT Not Given .Q10H [facility]IE Hydromorphone/Sodium Chloride 6 mg in 30 mls @ 0 mls/hr 04/08/18 14:00 14:10 Dilaudid Chief Informatics Officer Inj CORPORATE AFFAIRS MANAGER 0 mls/hr UNSCH PRN Administration per CORPORATE AFFAIRS MANAGER parameters 0 MG/HR Levofloxacin/Dextrose 150 mls @ 100 mls/hr 04/08/18 23:00 04/09/18 01:41 Levaquin 750 Mg Premix Inj IV.SIG Infused Q24H [facility]IE Infusion Ketorolac Tromethamine 15 mg 04/08/18 14:00 04/09/18 09:50 Toradol Inj IV.PUSH 04/13/18 13:59 15 mg Q6H CARLIE Administration Sodium Chloride 2 ml 04/08/18 21:00 04/09/18 09:50 Ns Flush IV.FLUSH 2 ml BID CARLIE Administration Objective Remarks: GENERAL: Elderly male patient, sitting in chair, in no acute distress. SKIN: Warm and dry. HEAD: Normocephalic. EYES: No scleral icterus. No injection or drainage. NECK: Supple, trachea midline. CARDIOVASCULAR: Regular rate and rhythm without murmurs. RESPIRATORY: Breath sounds equal bilaterally. No accessory muscle use. GASTROINTESTINAL: Abdomen soft, non-tender, nondistended. Colostomy to left quadrant, bag with small amount of green/brown liquid. Surgical dressing to midline dry/intact. EXTREMITIES: No cyanosis, or edema. MUSCULOSKELETAL: Adequate muscle tone. NEUROLOGICAL: No obvious focal deficit. Awake, alert, and oriented x3. PSYCHIATRIC: Appropriate mood and affect; insight and judgment normal. Assessment/Plan - Plan Mr. Youssef is a pleasant 78-year-old male patient who presented to the hospital with intractable nausea and vomiting which had started approximately 2 weeks prior. He admits to 2 months of liquid stools. He states he has never had a colonoscopy and typically does not go to the doctor for anything. CT abdomen pelvis showed a large mass in the proximal sigmoid colon with apple core narrowing of the lumen. Also present were a few periaortic lymph nodes that measured 7 mm to 1.4 cm. Patient underwent extended left colectomy with end colonoscopy on 04/08/2018. Oncology was consulted for newly diagnosed colon cancer. Plan: 1. Colon mass, status post colectomy with end colonoscopy on 04/08/[address] Cowart. Pathology is pending. CEA was normal at 0.8. 2. Renal function has decreased. Patient currently getting IV fluids. 3. Pending renal function improvement, we will plan for a CT chest in a few days. 4. Await final pathology. 5. Continue supportive care. - Attending Statement The exam, history, and the medical decision-making described in the above note were completed with the assistance of the mid-level provider. I reviewed and agree with the findings presented. I attest that I had a [id number] encounter with the patient on the same day, and personally performed and documented my assessment and findings in the medical record. Patient is feeling better. He is complaining of dry mouth. CEA was normal. Pathology from colonic mass is pending. Plan to get CT of the chest when he is a little stronger.
[2018-04-09] MEDS: Heparin - SQ 10,000 UNITS/ML Vial SQ SCH ×2 (13:40→21:37)
--- NOTE | 2018-04-09 16:37 | P.PN ---
Subjective Interval history: This is a pleasant 78 y/o male who was admitted due to refractory nausea and vomit, for two weeks, CT abdomen and Pelvis demonstrated obstructive Colonic mass, status post Partial Colostomy, NG tube in place, seen in his bedroom and dehydrated given 500 ml of IV fluids, then discussed with Doctor Nixon Cowart recommended for 1000 ml more and follow new BMP later today, as per child care specialist he had status post Colectomy and end colonoscopy 04/08/18, CEA normal at 0.8. continue with NG tube at slow suction. Physical Exam Vital signs: Vital Signs 04/08/18 20:00 04/08/18 22:28 04/09/18 00:00 Temperature 97.7 F 97.6 F Pulse Rate 98 H 94 H Respiratory Rate 20 21 16 Blood Pressure 110/60 118/56 L Pulse Oximetry 94 L 95 04/09/18 04:00 04/09/18 08:00 04/09/18 10:05 Temperature 97.6 F 97.9 F Pulse Rate 91 H 89 Respiratory Rate 19 19 Blood Pressure 102/57 L 111/56 L Pulse Oximetry 93 L 94 L 93 L 04/09/18 12:00 04/09/18 16:00 Temperature 97.9 F 97.4 F L Pulse Rate 93 H 89 Respiratory Rate 18 18 Blood Pressure 106/57 L 88/53 L Pulse Oximetry 88 L 95 Intake & Output 04/08/18 04/09/18 04/09/18 18:59 06:59 18:59 Intake Total 3700 / 3700 1550 / 1550 2200 / 2200 Output Total 350 / 350 200 / 200 106 / 106 Balance 3350 / 3350 1350 / 1350 2094 / 2094 Weight 77 kg Intake: IV 1300 / 1300 1550 / 1550 2200 / 2200 NS Inj 1,000 ML @ 100 mls/hr IV 1000 / 1000 1000 / 1000 1000 / 1000 .CONT .Q10H [facility] Rx#:[id number] Ofirmev Inj 1,000 mg In 100 ml 100 / 100 200 / 200 100 / 100 @ 400 mls/hr IV.SIG Q6H [facility] Rx# :[id number] Levaquin 750 mg Premix Inj 150 150 / 150 ML @ 100 mls/hr IV.SIG Q24H [facility] Rx#:[id number] NS Inj 1,000 ML @ Wide Open IV. 1000 / 1000 SIG BOLUS [facility] Rx#:[id number] Flagyl 500 MG Inj 100 ML @ 100 200 / 200 200 / 200 100 / 100 mls/hr IV.SIG Q6H [facility] Rx#: [id number] Anesthesia Amount 2400 / 2400 Output: Estimated Blood Loss 250 / 250 Urine Amount (Catheter) 100 / 100 200 / 200 106 / 106 Indwelling Urethral Catheter 100 / 100 200 / 200 106 / 106 Stool Amount (Stoma) 0 / 0 Left Lower Abdomen 0 / 0 Gastric Drainage 0 / 0 Right Nare Nasogastric Tube 0 / 0 Narrative: GENERAL: NAD SKIN: Warm and dry. EYES: No scleral icterus. No injection or drainage. ENT: dry mucous membranes. NG tube in place at slow suction. CARDIOVASCULAR: Regular rate and rhythm. no murmurs RESPIRATORY: No accessory muscle use. Clear to auscultation. Breath sounds equal bilaterally. GASTROINTESTINAL: Abdomen soft, non-tender, intact colostomy Extremities: No clubbing, cyanosis. BLEs with SCDs. MUSCULOSKELETAL: adequate muscle bulk and tone for age and habitus NEUROLOGICAL: Awake and alert. No obvious cranial nerve deficits. No facial droop nor slurred speech noted. PSYCHIATRIC: Appropriate mood and affect; insight and judgment normal. - Urinary Catheter Management Indwelling Urethral Catheter Cath placed during this visit: yes Reason for continuing: Not indwelling catheter Insertion date: 04/08/18 Insertion time: 09:50 Results - Labs CBC & Chem 7: 04/09/18 03:59 04/09/18 03:59 Laboratory Results - last 24 hr 04/09/18 04/09/18 03:59 03:59 WBC 18.2 H RBC 4.24 L Hgb 10.9 L Hct 35.4 L MCV 83.5 MCH 25.8 L MCHC 30.9 L RDW 14.8 Plt Count 378 MPV 8.1 Neut % (Auto) 94.8 H Lymph % (Auto) 1.7 L [place] % (Auto) 3.3 Eos % (Auto) 0.2 Baso % (Auto) 0.0 Neut # (Auto) 17.3 H Lymph # (Auto) 0.3 L [place] # (Auto) 0.6 Eos # (Auto) 0.0 Baso # (Auto) 0.0 WBC Differential . Differential Comment Auto diff final Sodium 144 Potassium 5.3 H D Chloride 108 H Carbon Dioxide 25.5 Anion Gap 11 BUN 21 H Creatinine 1.83 H Estimated GFR 36 L Random Glucose 109 H Calcium 7.5 L Carcinoembryonic Ag 0.8 - Imaging Abdomen/Pelvis CT 04/07/18 18:19 CONCLUSION: 1. Abnormal appearance to the proximal sigmoid colon, highly suspicious for a colonic tumor, with findings suggesting an 8 cm long lobular mass causing apple core narrowing of the lumen. 2. Possible pneumatosis in the right colon. No dilated loops of small bowel. 3. Concentric thickening of the distal esophagus, of uncertain significance. Chest X-Ray 04/07/18 18:19 CONCLUSION: No acute cardiopulmonary disease. - Procedures s/p partial colectomy and colostomy was suspicious for adenocarcinoma Assessment and Plan - Plan 78 y/o WM admitted with acute n/v with colonic mass. Large Sigmoid Colon Mass, status post CT abdomen and Pelvis showed a large mass in the Proximal sigmoid colon, with apple core narrowing of the lumen, status post Left Colectomy with end Colostomy, project controls specialist following will perform CT chest for stagging. Dehydration at this time with dry mucous membranes given 2500 ml of NS and following increased NS to 125 ml per Hour and following, with BMP asked for Doctor Supa for 1600 hours today. Acute kidney injury Creatinine 1.83 on IV fluids. Distal thickening of esophagus with unspecified significance -Possibly secondary to obstruction of food boluses within the GI tract. Monitor clinically Leucocytosis on Levaquin and Flagyl. following COPD stable no exacerbation on Bronchodilator, Mucolytic and incentive spirometry history of Prostate cancer treated with radiation one year ago. DVT prophylaxis with Heparin Code Status: Full code Discussed Condition With: Patient and nurse in the room discussed with General lawn specialist Doctor Nixon Cowart. Discharge Planning: Once cleared by specialists.
--- NOTE | 2018-04-09 18:24 | P.PNWCN ---
Wound Care Nurse Consult Description: Received consult for new ostomy teaching for LUQ colostomy Communicated with: Patient, RN Amie , and Doctor Supa Recommendation: Empty pouch when 1/3 to 1/2 full. Change appliance every 5 to 7 days or PRN for leaking. Do not reinforce appliance with tape if leaking please change. Monitor stoma for output and appearance. Incision - Incision Midline Abdomen Other Cover Dressing: Primapore Bowel Diversion Stoma - Bowel Stoma Left Lower Abdomen Stoma Appearance: Purple Loop Supporting Gene: No Collection Device: Two-piece Drainage Description: Blood-Tinged Wafer Size: 2 1/4 Moldable Stoma Care: Pouch and Wafer Changed Vicky-Stomal Skin Appearance: Intact Vicky-Stomal Surrounding Tissue Sensation Description: No Symptoms - Additional Information Additional Information: Patient seen on for new ostomy teaching for LUQ abdomen colostomy.Patient is sitting in recliner upon fiction and nonfiction writer prose's arrival. Assessed stoma and pouching system. Stoma presents 90% purple in color and 10% pink that is moist~10 cc of paste like brown effluent seen in pouch. Two piece pouching system is leaking. Changed ostomy appliance. Stoma has a slight oval shape measuring 1 1/4 tall and 1 1/8 wide.Spoke with Doctor Supa before seeing patient. Doctor Supa is aware of the purple coloration of stoma. Applied new two piece 2 1/[address]. Patient was instructed on when to empty appliance, stoma appearance, when to change appliance and type of ostomy surgery. Patient wishes ex to be here for next round ostomy teaching. Time set for tomorrow at 10 am for next ostomy teaching.
[2018-04-09 19:13] LABS: Calcium 7.6 mg/dL (8.5-10.1); Carbon Dioxide 23.9 meq/L (21.0-32.0); Potassium 4.2 meq/L (3.5-5.1)
[2018-04-09 21:38] VITALS: BP 95/59; PULSE 92; TEMP 98.7; O2SAT 92
--- NOTE | 2018-04-10 00:32 | P.DN ---
Pronouncement Note - Date and Time of Date of : 04/10/18 Time of : 00:28 - PCOD Preliminary cause of : Cardiac arrest
[2018-04-10 00:33] LABS: ABG Base Excess -20.6 mmol/L (-2-2); ABG PCO2 56 mmHg (38-42); ABG PO2 174 mmHg (61-120)
--- NOTE | 2018-04-10 00:37 | P.CONCC ---
History of Present Illness Service: Critical care medicine Consult date: 04/10/18 Requesting Physician: Vanna Finch Reason for Consult: Cardiac arrest Primary Care Provider: UNKNOWN History of Present Illness: I was called to a [facility] at 23:35 on 04/09. presenting rhythm was PEA/ Asystole. ACLS was performed (see separate code sheet for details). He did have 1 episode of v. fib during that time and was defibrillated. after 21 minutes, ROSC was obtained. post-ROSC EKG demonstrates st elevations in inferior leads with reciprocal lateral st depressions, suggestive of acute myocardial infarction. however, the patient never remained stable and decompensated again into cardiac arrest. despite maximal efforts, the patient on 04/10 at 00: 28. Review of Systems unobtainable due to endotracheal tube, unobtainable due to mental condition, unobtainable due to mental status PMFSH - History History Provided By: Patient, Medical Record - Medical History Medical History: Medical History (Last Reviewed 04/08/18 @ 17:25 by Yomi Walker MD) COPD (chronic obstructive pulmonary disease) Clavicle fracture Hypertension Prostate cancer - Family History Family History: Family History (Last Reviewed 04/08/18 @ 17:26 by Yomi Walker MD) Other Cancer Diabetes - Tobacco History Second Hand Smoke Exposure: No Tobacco Use In Past 30 Days: No Smoking Status: Former smoker Tobacco Type: Cigarettes - Alcohol History How Often Do You Have a Drink Containing Alcohol: Never - Substance Use History Substance History: No History of Abuse - Travel History Recent Travel in the [place] Within the Last 8 Weeks: No Recent Travel Out of the Country Within the Last 8 Weeks: No - Immunization History Tetanus Immunization: Unsure Medications and Allergies Active Medications: Active Medications Al Hydroxide/Mg Hydroxide (Milk Of Gerry Liq) 30 ml PO Q12H PRN PRN Reason: Mild Constipation Bisacodyl (Dulcolax Supp) 10 mg RECTAL DAILY PRN PRN Reason: SEVERE CONSITIPATION Diphenhydramine HCl (Benadryl Inj) 25 mg IV.PUSH Q6H PRN PRN Reason: for itching Heparin Sodium (Porcine) (Heparin Inj) 5,000 units SQ Q8HR [facility] Last Admin: 04/09/18 21:37 Dose: 5,000 units Metronidazole/Sodium Chloride (Flagyl 500 Mg Inj) 100 mls @ 100 mls/hr IV.SIG Q6H [facility] Last Admin: 04/09/18 21:36 Dose: 150 mls/hr Sodium Chloride (Ns Inj) 1,000 mls @ 125 mls/hr IV.CONT .Q8H [facility] Last Admin: 04/09/18 13:33 Dose: 100 mls/hr Hydromorphone/Sodium Chloride (Dilaudid Freight Adjuster Inj) 6 mg in 30 mls @ 0 mls/hr POLISHING WHEEL SETTER UNSCH PRN PRN Reason: per POLISHING WHEEL SETTER parameters Last Admin: 04/08/18 14:10 Dose: 0 mls/hr Sodium Chloride (Ns Inj) 1,000 mls @ 0 mls/hr IV.SIG BOLUS [facility] Last Admin: 04/09/18 17:35 Dose: 100 mls/hr Levofloxacin/Dextrose (Levaquin 750 Mg Premix Inj) 150 mls @ 100 mls/hr IV.SIG Q48H [facility] Ketorolac Tromethamine (Toradol Inj) 15 mg IV.PUSH Q6H [facility] Stop: 04/13/18 13:59 Last Admin: 04/09/18 21:34 Dose: 15 mg Lactulose (Lactulose Liq) 30 ml PO DAILY PRN PRN Reason: SEVERE CONSITIPATION Naloxone HCl (Narcan Inj) 0.4 mg IV.PUSH PRN PRN PRN Reason: SEE LABEL COMMENTS Ondansetron HCl (Zofran Inj) 4 mg IV.PUSH Q6H PRN PRN Reason: NAUSEA OR VOMITING Prochlorperazine (Compazine Supp) 25 mg RECTAL Q12HR PRN PRN Reason: NAUSEA OR VOMITING Sennosides (Senokot) 17.2 mg PO Q12H PRN PRN Reason: Moderate Constipation Sodium Chloride (Ns Flush) 2 ml IV.FLUSH BID [facility] Last Admin: 04/09/18 21:35 Dose: 2 ml Sodium Chloride (Ns Flush) 2 ml IV.FLUSH PRN PRN PRN Reason: FLUSH AFTER USING IV ACCESS Allergies Allergy/AdvReac Type Severity Reaction Status Date / Time No Known Allergies Allergy Unverified 08/30/17 06:41 Home Medications Medication Instructions Recorded Confirmed Type ipratropium bromide [Atrovent HFA] 2 puff INHALATION Q6H PRN 04/07/18 04/08/18 History tamsulosin 0.4 mg PO DAILY 04/07/18 04/08/18 History tiotropium bromide [Spiriva with 1 cap INHALATION DAILY 04/07/18 04/07/18 History HandiHaler] Physical Exam Vital signs: Vital Signs 04/09/18 04:00 04/09/18 08:00 04/09/18 09:50 Temperature 36.4 C 36.6 C Pulse Rate 91 H 89 Respiratory Rate 19 19 Blood Pressure 102/57 L 111/56 L Pulse Oximetry 93 L 94 L 95 04/09/18 10:05 04/09/18 12:00 04/09/18 16:00 Temperature 36.6 C 36.3 C L Pulse Rate 93 H 89 Respiratory Rate 18 18 Blood Pressure 106/57 L 88/53 L Pulse Oximetry 93 L 88 L 95 04/09/18 20:00 Temperature 37.1 C Pulse Rate 92 H Respiratory Rate 18 Blood Pressure 95/59 L Pulse Oximetry 92 L Intake & Output 04/09/18 04/09/18 04/10/18 06:59 18:59 06:59 Intake Total 1550 / 1550 2425 / 2425 Output Total 200 / 200 181 / 181 Balance 1350 / 1350 2244 / 2244 Weight 77 kg Intake: IV 1550 / 1550 2300 / 2300 NS Inj 1,000 ML @ 100 mls/hr IV 1000 / 1000 1000 / 1000 .CONT .Q10H [facility] Rx#:[id number] Ofirmev Inj 1,000 mg In 100 ml 200 / 200 100 / 100 @ 400 mls/hr IV.SIG Q6H [facility] Rx# :[id number] Levaquin 750 mg Premix Inj 150 150 / 150 ML @ 100 mls/hr IV.SIG Q24H [facility] Rx#:[id number] NS Inj 1,000 ML @ Wide Open IV. 1000 / 1000 SIG BOLUS [facility] Rx#:[id number] Flagyl 500 MG Inj 100 ML @ 100 200 / 200 200 / 200 mls/hr IV.SIG Q6H [facility] Rx#: [id number] Oral 125 / 125 Output: Urine 75 / 75 Urine Amount (Catheter) 200 / 200 106 / 106 Indwelling Urethral Catheter 200 / 200 106 / 106 Stool Amount (Stoma) 0 / 0 Left Lower Abdomen 0 / 0 Gastric Drainage 0 / 0 Right Nare Nasogastric Tube 0 / 0 Other: # Bowel Movements 0 Narrative: gen: elderly man in extremis, ashen. cv: pulseless, asystole resp: ett in place. extr: cyanotic, cool, poor cap refill neuro: pupils 6mm, fixed, dilated. GCS 3. - Urinary Catheter Management Indwelling Urethral Catheter Cath placed during this visit: yes Reason for continuing: Not indwelling catheter Insertion date: 04/08/18 Insertion time: 09:50 Assessment and Plan - Assessment and Plan Plan: Assessment: 78yM s/p ex-lap with colectomy and colostomy who acutely decompensated into cardiac arrest- most likely etiology STEMI. Active Problems: Cardiac Arrest STEMI s/p colectomy cardiogenic shock acute metabolic acidosis Plan: patient I attempted to notify next of kin documented on the chart, but was unable to notify. I notified surgical and primary teams. Critical care time: 30 minutes, exclusive of separately billable procedures.
--- NOTE | 2018-04-10 00:39 | P.PCN ---
Date of procedure: 04/10/18 Pre-op diagnosis: cardiac arrest Procedure: CPR procedure note Presenting rhythm: Asystole Event Details: ACLS was followed. Please see code sheet for details. Procedure Description: Arrived at [facility]. Followed ACLS guidelines. See code sheet for details. I was personally present for the entire CPR event.
--- NOTE | 2018-04-10 00:39 | P.DN ---
Discharge Sum: Prov - Provider Primary care physician: UNKNOWN Consults: 04/07/18 21:18 Consult to General Surgery Stat Consulting Provider: Julian Juarez For STAT consult, spoke directly to:: Supa Reason for Consultation: Possible Pneumatosis Notified:: Service Spoke with:: MARTHA Date Notified:: 04/07/18 Time Notified:: 22:27 Comments:: KEREN GUTIERREZ/POD D SARA SPOKE WITH DR SONI PER MARTHA/[facility] - CONSULT CANNOT GO TO DR SONI - HE DOES NOT ACCEPT [facility] IT NEEDS TO GO TO [facility] (DR JUAREZ) Ordering Provider: ROMANA 04/08/18 01:23 HUB Only Consult Order Routine Consulting Provider: Alice Jenkins 04/08/18 16:44 Consult to Oncology Routine Consulting Provider: Shine Paris Reason for Consultation: colonic mass Notified:: Office Spoke with:: Kim Date Notified:: 04/08/18 Time Notified:: 16:49 Ordering Provider: ANTONETTE Pronouncing clinician: Mikal Capps Discharge Sum: Diag - Admitting Diagnosis (1) Colon obstruction Status: Acute (2) Colonic mass Status: Acute (3) Neoplasm of sigmoid colon Status: Acute (4) Pneumatosis of intestines Status: Acute (5) Sigmoid stricture Status: Acute Discharge Sum: Summary - Date and Time Date of admission: 04/07/18 22:06 Date of : 04/10/18 Time of : 00:28 - Summary Procedures: s/p partial colectomy and colostomy was suspicious for adenocarcinoma Brief History: 78-year-old white male being admitted for refractory nausea/vomiting. Patient started developing nausea vomiting over the last 2 weeks. Initially he had trouble vomiting when he came to ingesting solid foods. Then eventually with softer foods he had the same trouble. Upon the recommendations from his primary care provider he proceeded to the emergency department. In the emergency department he has stable vital signs. CT abdomen demonstrated an obstructing colonic mass. General surgery had been consulted and took the patient to surgery performing a partial colectomy with colostomy. NG tube in place. Patient reports he is never had a colonoscopy in his life. Says he only started seeing regular physician sometime within the last 3 years. Says he has a healthy heart and denies any heart disease. Result Diagrams: 04/09/18 03:59 04/09/18 17:55 Significant Findings: Abnormal Lab Results 04/09/18 04/09/18 04/09/18 03:59 03:59 17:55 WBC 18.2 H RBC 4.24 L Hgb 10.9 L Hct 35.4 L MCV 83.5 MCH 25.8 L MCHC 30.9 L RDW 14.8 Plt Count 378 MPV 8.1 Neut % (Auto) 94.8 H Lymph % (Auto) 1.7 L [place] % (Auto) 3.3 Eos % (Auto) 0.2 Baso % (Auto) 0.0 Neut # (Auto) 17.3 H Lymph # (Auto) 0.3 L [place] # (Auto) 0.6 Eos # (Auto) 0.0 Baso # (Auto) 0.0 WBC Differential . Differential Comment Auto diff final Puncture Site Patient Temperature O2 Saturation ABG pH ABG pCO2 ABG pO2 ABG HCO3 ABG O2 Content ABG Base Excess ABG Methemoglobin Hemoglobin Carboxyhemoglobin O2 Delivery Device Vent Setting Inspired O2 Critical Value Sodium 144 142 Potassium 5.3 H D 4.2 D Chloride 108 H 111 H Carbon Dioxide 25.5 23.9 Anion Gap 11 7 BUN 21 H 25 H Creatinine 1.83 H 1.74 H Estimated GFR 36 L 38 L Random Glucose 109 H 108 H Calcium 7.5 L 7.6 L Carcinoembryonic Ag 0.8 04/10/18 00:09 WBC RBC Hgb Hct MCV MCH MCHC RDW Plt Count MPV Neut % (Auto) Lymph % (Auto) [place] % (Auto) Eos % (Auto) Baso % (Auto) Neut # (Auto) Lymph # (Auto) [place] # (Auto) Eos # (Auto) Baso # (Auto) WBC Differential Differential Comment Puncture Site Right femoral Patient Temperature 98.6 O2 Saturation 96 ABG pH 6.88 L* ABG pCO2 56 H* ABG pO2 174 H ABG HCO3 10 L* ABG O2 Content 11.7 L ABG Base Excess -20.6 L ABG Methemoglobin 0.9 Hemoglobin 8.5 L Carboxyhemoglobin 0.0 O2 Delivery Device Ventilator Vent Setting See comment Inspired O2 100 Critical Value Yes Sodium Potassium Chloride Carbon Dioxide Anion Gap BUN Creatinine Estimated GFR Random Glucose Calcium Carcinoembryonic Ag Hospital Course: patient is status post colectomy who had sudden onset cardiac arrest. despite maximal efforts, patient .
--- NOTE | 2018-04-10 00:44 | XR ---
EXAM DATE: 04/10/2018 12:00 AM EDT AGE/SEX: 78 years / Male INDICATIONS: Post intubation CLINICAL DATA: This is the patient's initial encounter. Patient reports that signs and symptoms have been present for 1 day and indicates a pain score of Nonresponsive. MEDICAL/SURGICAL HISTORY: . Hypertension. Chronic obstructive pulmonary disease None. COMPARISON: [facility] [place], CHEST 2V PA&LAT, 04/07/2018. . FINDINGS: Single AP view the chest. Endotracheal tube is in place with the tip 3 cm above the issa. The lungs are clear. Cardiomediastinal silhouette within normal limits. No evidence of pleural effu feliciano or pneumothorax. CONCLUSION: Endotracheal tube in place. No acute cardiopulmonary disease identified. Electronically signed by: Jamin Bo MD 04/10/2018 12:43 AM EDT
[2018-04-10] MEDS ORDERED: Sodium Bicarbonate 8.4% Inj 50 MEQ/50 ML Syringe IV.CONT ONE (01:59)
[2018-04-10] MEDS ORDERED: Calcium Chloride Inj 1 GM/10 ML Syringe IV.PUSH ONE (01:59)
--- NOTE | 2018-04-10 22:27 | ECG ---
Date Performed: 04/10/2018 Time Performed: 00:19:36 PTAGE: 78 years EKG: Sinus rhythm with borderline 1st degree A-V block. Indeterminate axis Right bundle branch block Possible inferior infarct - age undetermined Marked ST-T changes suggest myocardial injury/ischemia Low QRS voltages i n limb leads Abnormal ECG PREVIOUS TRACING : 04/07/2018 18.18 Compared to previous tracing, ST-T changes are new DOCTOR: Adolfo Mojica Interpretating Date/Time 04/10/2018 22:25:33
== END 2018-04-10 02:00 | disposition expired ==
LOC: NEPD 14:47 → NEDA 22:06 → HCIN 23:41 → N07 04-08 16:07 → N03 04-10 00:08
PROVIDERS: ADMIT Internal Medicine; ATTEND Internal Medicine